=== PATIENT | female | born 1975 | race African-American/Black ===

== ENCOUNTER 2016-06-14 23:31 | Emergency (ER) | payer OTHER ==
[2016-06-14 23:47] VITALS: BP 159/87; PULSE 105; TEMP 98.4; BMI 32.3
--- NOTE | 2016-06-14 23:54 | PDOC ---
History of Present Illness - General Chief Complaint: Tachycardia Stated Complaint: LT HAND NUMBNESS Time Seen by Provider: 06/14/16 23:35 History Source: Patient Exam Limitations: No Limitations - History of Present Illness Initial Comments: 06/14/16 23:46 40 Y F HTN, DM, PAROXYSMAL A-FIB. PTE C/O PALPITATIONS,ON AND OFF SINCE THIS EVENING. HR HAS GONE UP TO HIGH 180. NO CHEST PAIN BUT C/O TINGLING ON HER FINGERTIPS BOTH HANDS. STS HAS THIS ON AND OFF. SUPOSED TO BE ON ELIQUIST BUT CAN'T AFFORD IT. WHEN ASKED ABOUT POSSIBLE TRIGGERS, PT BROKE UP IN TEARS ABD STATED SHE HAS A LOT5 OF STRESS TAKING CARE OF BOTH HER PARENTS AND HER KIDS. STS HAS EPISODES OF ANXIETY WHICH TRIGGER HER HEART RATE. IN ED, IN NAD REG RATE AT 98 W/ GOOD O2 SATS. WHEN CRYING, HR WENT UP TO 140 ON MONITOR BUT REGULAR. AFTER REASSURANCE AND SOME LISTENING PT'S HR WENT DOWN TO LOW 90'S. FEELS BETTER. Past History - Past Medical History Allergies/Adverse Reactions: Allergies Allergy/AdvReac Type Severity Reaction Status Date / Time No Known Allergies Allergy Verified 01/21/16 02:42 Home Medications: Ambulatory Orders Acetaminophen [Tylenol .Regular Strength -] 650 mg PO Q6H PRN #0 tablet Alcohol Antiseptic Pads [Easy Touch Alcohol Prep Pads] 1 each ACHS #120 med..pad 01/26/16 Lactobacillus Acidophilus [Bacid -] 1 tab PO DAILY tab 01/26/16 Lancing Device [Lancet Device] 1 each ACHS #120 each 01/26/16 Miscellaneous Medical Supply [Glucometer Device] 1 each .ROUTE ASDIR #1 kit Miscellaneous Medical Supply [Glucometer Test Strips #100] 1 each .ROUTE ASDIR # 1 box 01/26/16 Apixaban [Eliquis -] 5 mg PO BID tablet 02/09/16 Lisinopril 5 mg PO DAILY tablet 02/20/16 HTN: Yes - Surgical History Cholecystectomy: Yes - Psycho/Social/Smoking Cessation Hx Anxiety: No Suicidal Ideation: No Smoking History: Never smoked Have you smoked in the past 12 months: No Hx Alcohol Use: No Drug/Substance Use Hx: No Substance Use Type: None Hx Substance Use Treatment: No Review of Systems - Review of Systems Able to Perform ROS?: Yes Is the patient limited Singaporean proficient: No Constitutional: No: Symptoms Reported HEENTM: No: Symptoms Reported Respiratory: Yes: See HPI. No: Symptoms reported Cardiac (ROS): Yes: Symptoms Reported, See HPI, Palpitations. No: Chest Pain, Irregular Heart Rate Musculoskeletal: No: Symptoms Reported Neurological: Yes: See HPI. No: Symptoms reported All Other Systems: Reviewed and Negative *Physical Exam - Physical Exam General Appearance: Yes: Nourished, Appropriately Dressed, Obese. No: Apparent Distress HEENT: positive: Normal ENT Inspection Neck: positive: Supple. negative: Tender Respiratory/Chest: positive: Lungs Clear, Normal Breath Sounds. negative: Chest Tender, Respiratory Distress Cardiovascular: positive: Regular Rhythm, Regular Rate. negative: Murmur Gastrointestinal/Abdominal: positive: Soft. negative: Tender Musculoskeletal: positive: Normal Inspection Extremity: positive: Normal Capillary Refill. negative: Pedal Edema Integumentary: positive: Normal Color Neurologic: positive: Fully Oriented, Alert, Normal Mood/Affect, Normal Response , Motor Strength 5/5 Progress Note - Progress Note Progress Note: I BELIEVE THIS EPISODES ARE MORE LIKELY ANXIETY. COULD TRIGGER HER A-FIB BUT ONLY SINUS TACH IN ER ON DILT FOR RATE CONTROL. WILL SEND HOME (WE SPENT A LONG TIME CHATING ABOUT HER ISSUES AND HOW TO COPE W / STRESS) ADMISSION IS NOT WARRANTED AND LIKELY TO WORSEN HER STRESS WILL CALL DR. BONE ON FRIDAY *DC/Admit/Observation/Transfer Diagnosis at time of Disposition: Anxiety - Discharge Dispostion Disposition: HOME Condition at time of disposition: Stable - Referrals Referrals: Aj Bone MD [Primary Care Provider] - 2 Days - Patient Instructions Additional Instructions: CONTINUE MEDICATIONS PRESCRIBED IF NOT TAKING ELOQUIS, TAKE ASPIRIN ONCE A DAY CHECK OTHER SOURCES LIKE [employer] RETURN TO ER IF RECURRENCE OR NEW SYMPTOMS
--- NOTE | 2016-06-17 20:37 | EKG ---
Test Reason : Blood Pressure : / mmHG Vent. Rate : 093 BPM Atrial Rate : 093 BPM P-R Int : 142 ms QRS Dur : 082 ms QT Int : 382 ms P-R-T Axes : 044 039 040 degrees QTc Int : 474 ms POOR DATA QUALITY, INTERPRETATION MAY BE ADVERSELY AFFECTED NORMAL SINUS RHYTHM NO PREVIOUS ECGS AVAILABLE Confirmed by MD DALE MARJORY ([id number]) on 06/17/2016 8:37:15 PM Referred By: MD LOCO Confirmed By:MESFIN DALE MD
== END 2016-06-15 00:16 | disposition home or self-care (01) ==
LOC: FER 23:31
DX: F41.9 Anxiety disorder, unspecified (principal); I48.91 Unspecified atrial fibrillation; I10 Essential (primary) hypertension
CPT/HCPCS: 93005; 99281-25

== ENCOUNTER → 2016-08-27 | Emergency (ER) | payer OTHER ==
[~2016-08-27] MED LIST: ALPRAZolam 0.25 MG TABLET ONE; ALPRAZolam 0.25 MG TABLET PO ONE; ALPRAZolam 0.25 MG TABLET PO SCH; ENOXAPARIN NA (PORCINE) 100 MG/1 ML DISP.SYRIN SQ ONE; ENOXAPARIN NA (PORCINE) 120 MG/0.8 ML DISP.SYRIN SQ SCH; ENOXAPARIN NA (PORCINE) 30 MG/0.3 ML DISP.SYRIN SQ ONE; METOPROLOL TARTRATE 5 MG/5 ML VIAL IVPUSH ONE; METOPROLOL TARTRATE 5 MG/5 ML VIAL ONE; METOPROLOL TARTRATE 50 MG TABLET (FP) ONE; METOPROLOL TARTRATE 50 MG TABLET (FP) PO ONE; SODIUM CHLORIDE 500 ML IV STA; dilTIAZem HCL 50 MG/10 ML - 10 ML VIAL IVPUSH ONE; dilTIAZem HCL 50 MG/10 ML - 10 ML VIAL ONE
--- NOTE | 2016-08-27 06:09 | PDOC ---
History of Present Illness - General Chief Complaint: Palpitations Stated Complaint: PALPITATIONS Time Seen by Provider: 08/27/16 06:06 History Source: Patient Exam Limitations: No Limitations - History of Present Illness Initial Comments: 08/27/16 06:45 This is a 40-year-old female who comes in complaining of palpitations and chest pain. 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 fib in the past. Patient was recently admitted at [facility] for rapid A. fib and had multiple wide complexes as well so had an ablation. This was patient's first night back to work. Patient is otherwise obese, has history of hypertension and [id number] diabetes. Patient came down to the ER and was put on the monitor and noted to be in a rapid heart rate approximately 160. Patient put on oxygen and symptoms rapidly resolved at the time I saw her she was not complaining of any chest pain or palpitations. PAST MEDICAL HISTORY: no significant history PAST SURGICAL HISTORY: no significant history FAMILY HISTORY: no pertinant history SOCIAL HISTORY: Pt lives with family and is employed. MEDICATIONS: reviewed ALLERGIES: As per nursing notes Review of Systems General: No fevers or chills, no weakness, no weight loss HEENT: No change in vision. No sore throat,. No ear pain CardioVascular: As per history of present illness palpitations, diaphoresis and chest pain Respiratory:No cough, or wheezing. Gastrointestinal: no nausea, vomitting, diarrhea or constipation, No rectal bleeding Genitourinary: No dysuria, hematuria, or frequency Musculoskeletal: No joint or muscle pain or swelling Neurologic: No headache, vertigo, dizziness or loss of consciousness Psychiatric: nor depression Skin: No rashes or easy bruising Endocrine: no increased thirst or abnormal weight change Allergic: no skin or latex allergy All other systems reviewed and normal Exam: General: Well-nourished well-developed individual, mild distress with some diaphoresis HEENT: Throat: Normal, tonsils normal, no erythema or exudate Neck: Supple, no meningeal signs, no lymphadenopathy Eyes::Pupils equal reactive and round, extraocular motion intact Chest: Nontender to palpation Cardiac: S1-S2 normal, irregularly irregular Respiratory: Lungs clear to auscultation bilateral Abdomen: Soft, nondistended, normal bowel sounds, nontender to palpation diffusely Extremities: Warm, dry, no cyanosis, clubbing, or edema Skin: No rashes Neuro: Alert and oriented x3, nonfocal exam, grossly intact, normal gait Psych: Normal mood and affect EKG shows a combination of wide complex tachycardia and an underlying rhythm of a rapid atrial fibrillion Care of this patient was transferred to Dr. ibarra at 7 AM. Patient's labs are still pending. Discussed case with Dr. Canseco from [facility] who said that the ablation that patient had tach in June failed and that they wanted to repeat it under general anesthesia but patient refused. Dr. Cadet is going to come talk to the patient here in the emergency room and the assess to hold her here in tell he is able to discuss with her her options and come up with a plan for her treatment of this recurrent tachycardia Case discussed in detail with oncoming Emergency Physician including history, physical exam and ancillary studies. Oncoming Emergency Physician has assumed care for the patient and will complete the evaluation and treatment. Patient is aware of the plan. Pt is clinically unchanged and stable. 08/27/16 06:52 He he he I and learning to walk out and get year-round wear your out abdomen this morning lasted in a car where was(or Past History - Past Medical History Allergies/Adverse Reactions: Allergies Allergy/AdvReac Type Severity Reaction Status Date / Time No Known Allergies Allergy Verified 08/27/16 06:07 Home Medications: Ambulatory Orders Metoprolol Tartrate [Lopressor] 100 mg PO BID tablet 07/30/16 Mexiletine HCl 150 mg PO BID capsule 07/30/16 Warfarin Sodium 5 mg PO BID tablet 07/30/16 Lisinopril 5 mg PO DAILY 08/27/16 Sertraline HCl 25 mg PO DAILY 08/27/16 Cardiac Disorders: Yes (AFIB) Diabetes: Yes HTN: Yes - Surgical History Cholecystectomy: Yes - Psycho/Social/Smoking Cessation Hx Anxiety: No Suicidal Ideation: No Smoking History: Never smoked Have you smoked in the past 12 months: No Hx Alcohol Use: No Drug/Substance Use Hx: No Substance Use Type: None Hx Substance Use Treatment: No *Physical Exam - Vital Signs Last Vital Signs Temp Pulse Resp BP Pulse Ox 97.9 F 135 H 18 112/76 100 08/27/16 06:40 08/27/16 06:38 08/27/16 06:35 08/27/16 06:35 08/27/16 06:38 ED Treatment Course - RADIOLOGY Radiology Studies Ordered: Category Date Time Status CHEST X-RAY PORTABLE* [RAD] Stat Radiology 08/27/16 06:25 Ordered *DC/Admit/Observation/Transfer Diagnosis at time of Disposition: Palpitations - Discharge Dispostion Condition at time of disposition: Stable
[2016-08-27 06:36] VITALS: BMI 46.4
[2016-08-27 06:40] VITALS: TEMP 97.9
--- NOTE | 2016-08-27 07:10 | PDOC ---
*Physical Exam - Vital Signs Last Vital Signs Temp Pulse Resp BP Pulse Ox 97.9 F 135 H 18 112/76 100 08/27/16 06:40 08/27/16 06:38 08/27/16 06:35 08/27/16 06:35 08/27/16 06:38 ED Treatment Course - LABORATORY CBC & Chemistry Diagram: 08/27/16 06:34 08/27/16 08:08 Medical Decision Making - Medical Decision Making 08/27/16 07:10 Pt signed out to me from Dr. Oakley. The patient is a 41y F hx of htn, afib w/ multiple wide complexes s/p failed ablation presents today with palpitations and chest pain, pt noted to be afib with intermittent runs of 3-4 beats of wide complex tachycardia on ekg. Case was discussed with Dr. Canseco, who states pt will need another ablation (pt had declined undergoing general anesthesia last time) and would hold medical management. Pts BP normal here at 112/76. awaiting lab work and evaluation by Dr. Canseco regarding possible ablation. 08/27/16 09:[address] Canseco who is bedside evaluation the patient will transfer the pt [place] [facility] [place] [place] care of dr Audelia Nick (EP) would recommend metoprolol PRN for rate control BP stable The patient was seen and examined to determine medical stability. The patient is MEDICALLY STABLE at this time. Labs, EKG, radiological studies were ordered to expedite the patient's care. I certify that I have discussed with the patient and/or his maintenance representative the following risks and benefits of the proposed transfer. Risks include worsening of patients condition during transport,auto accident, or permanent disability. Benefits include receiving specialized care not available at this facility. I certify that, based on the information available at this time, the medical benefits reasonably expected from the provision of appropriate medical treatment at the receiving facility outweigh the increased risk to the patient. I believe the patient/relative/guardian understands what I have explained and answered. The patient will be transferred to the service of Dr. Audelia Nick at [facility] 08/27/16 10:17 The pt s/p 20mg of diltiazem with improvement of her HR to afib in the 70s 08/27/16 10:49 INR subtherapeutic will give her lovenox 100mg BID while awaiting transfer to [facility] d/w dr. Canseco, agree w/ lovenox and will give her metoprolol 100mg PO chaser CRITICAL CARE DOCUMENTATION: I spent ~35 minutes of Critical Care time, excluding separately billable procedures, involving high complexity decision making to assess, manipulate and support vital system function(s) to treat single or multiple vital organ system failure and/or to prevent further life threatening deterioration of the patient' s condition. *DC/Admit/Observation/Transfer Diagnosis at time of Disposition: Palpitations, Rapid atrial fibrillation, Nonsustained ventricular tachycardia - Discharge Dispostion Disposition: TRANSFER ACUTE CARE/OTHER HOSP Condition at time of disposition: Guarded Admit: No - Referrals Referrals: Aj Hagen MD [Primary Care Provider] - - Patient Instructions - Post Discharge Activity - Transfer to Acute Care Facility Receiving Facility: [facility] Accepting Physician:: Dr. Audelia Nick
[2016-08-27 07:35] LABS: BASOPHIL 1.5 % (0-2.0); EOSINOPHIL 1.1 % (0-4.5)
[2016-08-27 07:41] LABS: MCHC 32.8 g/dl (32.0-36.0); MEAN CELL VOLUME 82.2 fl (80-96); NEUTROPHILS 45.6 % (42.8-82.8); WHITE BLOOD COUNT 8.6 K/mm3 (4.0-10.8)
--- NOTE | 2016-08-27 08:26 | CON.CARD ---
Consult Consult Specialty:: Cardiology Referred by:: Dr. Patiño Reason for Consultation:: Wide complex tachycardia - History of Present Illness Chief Complaint: Palpitations History of Present Illness: 41 yo obese female with HTN, DM type 2, paroxysmal atrial fibrillation/non- sustained ventricular tachycardia, who recently underwent VT ablation on at [facility] but subsequently demonstrated VT post-procedure. Patient was to undergo repeat attempt at VT ablation under general anesthesia, but could not be performed due to scheduling issues and patient was discharged with outpatient follow-up. Patient's medical regimen was changed to metoprolol 100 mg po bid and Mexiletine 150 mg po bid, and started on coumadin for anticoagulation during that hospitalization. Patient was last seen in our office on 08/09/16 and was in sinus rhythm at that time. Patient was scheduled to see Dr. Audelia Nick (EP) on 08/30/16 at [facility]. However, last evening ~ 7 PM she developed palpitations and dyspnea and at work today (at [employer]) she found to be in rapid afib with runs of non-sustained VT. Currently without significant complaints but HR 130-150s. Patient reports compliance with her cardiac meds. Patient was given metoprolol 5 mg IVP in ED for rate control. - History Source History Provided By: Patient Limitations to Obtaining History: No Limitations - Past Medical History Cardio/Vascular: Yes: AFIB (paroxsymal), HTN (treated for about 1 ya, up to 1 ya -. self d/ariane (PMD left)), Other (Non-sustained ventricular s/p unsuccessful VT ablation on 07/24/16) ...LMP: 12/30/15 Endocrine: Yes: Diabetes Mellitus Additional Medical History: Obesity - Past Surgical History Past Surgical History: Yes: Cholecystectomy Additional Surgical History: VT ablation 07/24/16 at [facility] -> developed recurrent non-sustained VT post-procedure - Alcohol/Substance Use Hx Alcohol Use: No History of Substance Use: reports: None - Smoking History Smoking history: Never smoked Have you smoked in the past 12 months: No - Social History Usual Living Arrangement: With Child (3 daughters) Occupation: [employer] Home Medications - Allergies Allergies/Adverse Reactions: Allergies Allergy/AdvReac Type Severity Reaction Status Date / Time No Known Allergies Allergy Verified 08/27/16 06:07 - Home Medications Home Medications: Ambulatory Orders Metoprolol Tartrate [Lopressor] 100 mg PO BID tablet 07/30/16 Mexiletine HCl 150 mg PO BID capsule 07/30/16 Warfarin Sodium 5 mg PO BID tablet 07/30/16 Lisinopril 5 mg PO DAILY 08/27/16 Sertraline HCl 25 mg PO DAILY 08/27/16 Family Disease History - Family Disease History Family Disease History: Heart Disease: Father (2 CBG, first one in his 50s, also PCI) Review of Systems - Review of Systems Constitutional: reports: No Symptoms Eyes: reports: No Symptoms HENT: reports: No Symptoms Cardiovascular: reports: Palpitations, Shortness of Breath (with exertion). denies: Chest Pain Respiratory: reports: SOB on Exertion Gastrointestinal: reports: No Symptoms Genitourinary: reports: No Symptoms Musculoskeletal: reports: No Symptoms Neurological: reports: No Symptoms Endocrine: reports: No Symptoms Hematology/Lymphatic: reports: No Symptoms Psychiatric: reports: No Symptoms Vital Signs: Vital Signs Temperature 97.9 F 08/27/16 08:17 Pulse Rate 141 H 08/27/16 08:17 Respiratory Rate 19 08/27/16 08:17 Blood Pressure 120/100 08/27/16 08:17 O2 Sat by Pulse Oximetry (%) 100 08/27/16 08:17 Constitutional: Yes: No Distress, Obese Eyes: Yes: Conjunctiva Clear, EOM Intact HENT: Yes: Atraumatic, Normocephalic Respiratory: Yes: CTA Bilaterally Gastrointestinal: Yes: Normal Bowel Sounds, Soft. No: Tenderness JVD: No Carotid Bruit: No Murmur: No: Systolic Murmur Extremities: Yes: WNL Edema: No Neurological: Yes: Alert, Oriented, Cran Nerves II-XII Intact Psychiatric: Yes: Alert, Oriented - Other Data Labs, Other Data: CBC, BMP 08/27/16 06:34 08/27/16 06:34 INR, PTT INR Cancelled 08/27/16 06:34 Troponin, BNP 08/27/16 08/27/16 06:34 06:34 Troponin I Cancelled B-Natriuretic Peptide Cancelled Troponin, BNP 08/27/16 08/27/16 06:34 06:34 Troponin I Cancelled B-Natriuretic Peptide Cancelled 08/27/16 ECG: Rapid atrial fibrillation with non-sustained ventricular tachycardia Echo: Report Reviewed (07/17/16 Echo (at [facility]): Normal LV size and wall motion. LVEF 60%. Min MR. Mild TR.) Imaging - Results Cat Scan: Report Reviewed (07/18/16 Cardiac CTA: Calcium score = 0, normal coronaries) Other: Report Reviewed (07/18/16 Cardiac MRI: Mild hypokinesis of basal segments , LVEF 49%.) Assessment/Plan 41 yo obese female with HTN, DM type 2, paroxysmal atrial fibrillation/non- sustained ventricular tachycardia, who recently underwent VT ablation on at [facility] but subsequently demonstrated VT post-procedure. Patient was recently seen in our office several weeks ago and was in sinus rhythm at that time. Patient had pending appt with Dr. Audelia Nick on 08/30/16 at [facility]. Patient now presents to ED with recurrent rapid afib with non-sustained VT. Patient only complains of palpitations currently and is hemodynamically stable. Spoke with PA for Dr. Audelia Nick (EP at [facility]) regarding patient's current clinical status. Patient has agreed to undergo repeat attempt at VT ablation under general anesthesia as previously planned during her last recent hospitalization. RECS: Patient to be transferred to [facility] from [place] for repeat VT ablation under general anesthesia. Continue metoprolol tartrate 100 mg po bid and uptitrate as needed. May give metoprolol 5 mg IVP as needed for acute rate control. Continue her Mexiletine 150 mg po bid for now pending evaluation by EP service at [facility]. Hold coumadin for pending procedure. Keep patient NPO for now. Will add magnesium level to previously drawn labs.
[2016-08-27 08:42] LABS: MEAN PLT VOLUME 12.1 fl (7.5-11.1); PLATELET COUNT 358 K/MM3 (134-434)
[2016-08-27 08:59] LABS: ALBUMIN 3.4 g/dl (3.5-5.0); ALK PHOS 66 U/L (32-92); ANION GAP 10 (8-16); BILIRUBIN,TOTAL 0.7 mg/dl (0.2-1.0); CO2 22 mmol/L (22-28); CREATININE 0.8 mg/dl (0.6-1.3); GLUCOSE,RANDOM 296 mg/dl (74-106); SGOT/AST 14 U/L (10-42); SGPT/ALT 14 U/L (10-40); TOT PROT 7.5 g/dl (6.4-8.3)
[2016-08-27 09:31] LABS: TROPONIN I (DFP) 0.03 ng/ml (0.03-0.50)
[2016-08-27 10:16] LABS: INR 1.24 (0.82-1.09); PROTHROMBIN TIME (PATIENT) 13.8 SEC (10.2-13.0)
[2016-08-27 12:04] LABS: PH,URINE 5.5 (4.5-8); URINE APPEARANCE Cloudy; URINE BILIRUBIN 1+ (NEGATIVE); URINE BLOOD Trace-lysed (NEGATIVE); URINE GLUCOSE (UA) Trace (NEGATIVE); URINE KETONE 1+ (NEGATIVE); URINE NITRITE Negative (NEGATIVE); URINE UROBILINOGEN 0.2 E.U/dl (0.2-1.0)
[2016-08-27 12:20] LABS: URINE COLOR YELLOW; URINE LEUK ESTERASE TRACE (NEGATIVE); URINE PROTEIN 2+ (NEGATIVE)
[2016-08-27 13:06] LABS: URINE RBC 0-3 /hpf (0-3)
[2016-08-27 13:08] LABS: URINE BACTERIA MODERATE /hpf (NEGATIVE)
[2016-08-27 14:41] VITALS: BP 128/78; PULSE 83
--- NOTE | 2016-08-28 10:31 | EKG ---
Test Reason : Blood Pressure : / mmHG Vent. Rate : 080 BPM Atrial Rate : 258 BPM P-R Int : 000 ms QRS Dur : 082 ms QT Int : 380 ms P-R-T Axes : 000 056 054 degrees QTc Int : 438 ms ATRIAL FIBRILLATION ABNORMAL ECG WHEN COMPARED WITH ECG OF 27-AUG-2016 06:09, VENT. RATE HAS DECREASED BY 73 BPM Non-sustained ventricular tachycardia is no longer present Confirmed by STEVE VERDUZCO, KIMBERLY ([id number]) on 08/28/2016 10:31:35 AM Referred By: MD JOLLY Confirmed By:KIMBERLY WILSON MD
--- NOTE | 2016-08-28 11:53 | EKG ---
Test Reason : Blood Pressure : / mmHG Vent. Rate : 153 BPM Atrial Rate : 174 BPM P-R Int : 000 ms QRS Dur : 144 ms QT Int : 270 ms P-R-T Axes : 000 064 244 degrees QTc Int : 431 ms POOR DATA QUALITY, INTERPRETATION MAY BE ADVERSELY AFFECTED ATRIAL FIBRILLATION WITH RAPID VENTRICULAR RESPONSE Intermittent non-sustained ventricular tachycardia ABNORMAL ECG WHEN COMPARED WITH ECG OF 15-JUN-2016 00:03, ATRIAL FIBRILLATION HAS REPLACED SINUS RHYTHM VENT. RATE HAS INCREASED BY 60 BPM Confirmed by KIMBERLY WILSON MD ([id number]) on 08/28/2016 11:53:34 AM Referred By: MD JOSEPH Confirmed By:KIMBERLY WILSON MD
== END | disposition short-term general hospital (02) ==
LOC: FER 05:50
PROC: 3E023GC Introduction of Other Therapeutic Substance into Muscle, Percutaneous Approach (ICD-10-PCS; principal; 2016-08-27)
PROC: 3E033GC Introduction of Other Therapeutic Substance into Peripheral Vein, Percutaneous Approach (ICD-10-PCS; 2016-08-27)
PROC: 3E0337Z Introduction of Electrolytic and Water Balance Substance into Peripheral Vein, Percutaneous Approach (ICD-10-PCS; 2016-08-27)
DX: R00.2 Palpitations (principal); I48.91 Unspecified atrial fibrillation; I10 Essential (primary) hypertension
CPT/HCPCS: 36415; 71010-TC; 80053; 81003; 81015; 82550; 83735; 83880; 84443; 84484; 85025; 85610; 93005; 93010; 99285-25

== ENCOUNTER 2016-09-25 05:46 | Emergency (ER) | payer OTHER ==
[2016-09-25 05:55] VITALS: BP 160/109; PULSE 102; TEMP 98; BMI 45.1
[2016-09-25] MEDS ORDERED: KETOROLAC TROMETHAMINE 60 MG/2 ML VIAL IM ONE (06:01)
--- NOTE | 2016-09-25 06:04 | PDOC ---
History of Present Illness - General Chief Complaint: Pain, Acute Stated Complaint: WORK INJURY TO LEFT WRIST Time Seen by Provider: 09/25/16 05:56 History Source: Patient Exam Limitations: No Limitations - History of Present Illness Initial Comments: 09/25/16 06:04 This is a 41-year-old female comes in complaining of left wrist and hand pain. 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 To prevent the patient from falling on the floor she said her wrist was twisted and now he is very painful. She denies any other injuries. PAST MEDICAL HISTORY: no significant history PAST SURGICAL HISTORY: no significant history FAMILY HISTORY: no pertinant history SOCIAL HISTORY: Pt lives with family and is employed. MEDICATIONS: reviewed ALLERGIES: As per nursing notes Review of Systems General: No fevers or chills, no weakness, no weight loss HEENT: No change in vision. No sore throat,. No ear pain CardioVascular: No chest pain or shortness of breath Respiratory:No cough, or wheezing. Gastrointestinal: no nausea, vomitting, diarrhea or constipation, No rectal bleeding Genitourinary: No dysuria, hematuria, or frequency Musculoskeletal: Left wrist pain Neurologic: No headache, vertigo, dizziness or loss of consciousness Psychiatric: nor depression Skin: No rashes or easy bruising Endocrine: no increased thirst or abnormal weight change Allergic: no skin or latex allergy All other systems reviewed and normal GENERAL: The patient is awake, alert, and fully oriented, in no acute distress. HEAD: Normal with no signs of trauma. EYES: Pupils equal, round and reactive to light, extraocular movements intact, sclera anicteric, conjunctiva clear. EXTREMITIES: left wrist: There is tenderness on palpation of the medial aspect of the wrist and the base of the thumb over the scaphoid neurovascular distal is intact. There is decreased range of motion secondary to discomfort. NEUROLOGICAL: Normal speech, normal gait. PSYCH: Normal mood, normal affect. SKIN: Warm, Dry, normal turgor, no rashes or lesions noted. X-ray: Scaphoid fracture Procedure note OCL splint Thumb spica OCL splint applied to patient's left wrist and hand Neurovascular post splint application intact Assessment and plan: This is a 41-year-old female who was injured on-the-job well attempting to assist a patient in getting out of bed. Patient's x-ray shows a probable scaphoid fracture. Patient put in a thumb spica splint and will follow-up with orthopedist 09/25/16 06:33 Past History - Past Medical History Allergies/Adverse Reactions: Allergies Allergy/AdvReac Type Severity Reaction Status Date / Time No Known Allergies Allergy Verified 09/25/16 05:47 Home Medications: Ambulatory Orders Warfarin Sodium 5 mg PO HS tablet 07/30/16 Lisinopril 5 mg PO DAILY 08/27/16 Sertraline HCl 25 mg PO DAILY 08/27/16 Dofetilide [Tikosyn] 125 mcg PO 2 CAPS BID capsule 09/04/16 Metoprolol Tartrate 25 mg PO BID tablet 09/04/16 Cardiac Disorders: Yes (AFIB) Diabetes: Yes HTN: Yes - Surgical History Cholecystectomy: Yes - Psycho/Social/Smoking Cessation Hx Anxiety: No Suicidal Ideation: No Smoking History: Never smoked Have you smoked in the past 12 months: No Information on smoking cessation initiated: No Hx Alcohol Use: No Drug/Substance Use Hx: No Substance Use Type: None Hx Substance Use Treatment: No *Physical Exam - Vital Signs Last Vital Signs Temp Pulse Resp BP Pulse Ox 98 F 102 H 16 160/109 96 09/25/16 05:50 09/25/16 05:50 09/25/16 05:50 09/25/16 05:50 09/25/16 05:50 *DC/Admit/Observation/Transfer Diagnosis at time of Disposition: Fracture of scaphoid of left wrist Qualifiers: Encounter type: initial encounter Scaphoid bone location: middle third Fracture type: closed Fracture alignment: nondisplaced Qualified Code(s): S62.025A - Nondisplaced fracture of middle third of navicular [scaphoid] bone of left wrist, initial encounter for closed fracture - Discharge Dispostion Disposition: HOME Condition at time of disposition: Stable Admit: No - Referrals Referrals: Aj Hagen MD [Primary Care Provider] - - Patient Instructions Additional Instructions: Tylenol or Motrin as needed for the pain. Wear the splint until you see the orthopedist. Call Dr. Kay at [phone] this morning for an appointment. Return to the emergency department immediately with ANY new, persistent or worsening symptoms. Continue any medications as previously prescribed by your physician. Thank you for coming to the Emergency Department today for your care. It was a pleasure to see you today. Please note that your evaluation is INCOMPLETE until you follow-up with your doctor.
== END 2016-09-25 06:48 | disposition home or self-care (01) ==
LOC: FER 05:46
PROC: 2W3KX1Z Immobilization of Left Finger using Splint (ICD-10-PCS; principal; 2016-09-25)
PROC: 3E0233Z Introduction of Anti-inflammatory into Muscle, Percutaneous Approach (ICD-10-PCS; 2016-09-25)
DX: S62.025A Nondisplaced fracture of middle third of navicular [scaphoid] bone of left wrist, initial encounter for closed fracture (principal); X58.XXXA Exposure to other specified factors, initial encounter; Y93.89 Activity, other specified; Y92.239 Unspecified place in hospital as the place of occurrence of the external cause; Y99.0 Civilian activity done for income or pay; E11.9 Type 2 diabetes mellitus without complications; I10 Essential (primary) hypertension; I48.91 Unspecified atrial fibrillation; Z79.01 Long term (current) use of anticoagulants
CPT/HCPCS: 73110-TC-LT; 73130-TC-LT; 99281-25

== ENCOUNTER 2017-04-30 04:33 | Emergency (ER) | payer OTHER ==
[2017-04-30 04:55] VITALS: TEMP 98.2; BMI 40.3
[2017-04-30] MEDS ORDERED: SIMETHICONE 80 MG TAB.CHEW (FP) ONE (05:10)
[2017-04-30] MEDS ORDERED: SIMETHICONE 80 MG TAB.CHEW (FP) PO ONE (05:19)
[2017-04-30 05:21] LABS: EOS % 0.5 % (0-4.5); HEMATOCRIT 39.5 % (32.4-45.2); HEMOGLOBIN 12.7 GM/dL (10.7-15.3); LYMPH % 41.1 % (8-40); MCH 25.9 pg (25.7-33.7); MEAN CELL VOLUME 80.8 fl (80-96); MEAN PLT VOLUME 11.3 fl (7.5-11.1); MONO % 6.3 % (3.8-10.2); NEUT % 51.1 % (42.8-82.8); PLATELET COUNT 231 K/MM3 (134-434); RBC 4.88 M/mm3 (3.60-5.2); RDW 14.5 % (11.6-15.6); WHITE BLOOD COUNT 7.1 K/mm3 (4.0-10.0)
[2017-04-30 05:44] LABS: ALBUMIN 3.3 g/dl (3.4-5.0); ALK PHOS 79 U/L (45-117); ANION GAP 8 (8-16); BILIRUBIN,TOTAL 0.2 mg/dL (0.2-1.0); BLOOD UREA NITROGEN 16 mg/dL (7-18); CALCIUM 8.8 mg/dL (8.5-10.1); CHLORIDE 100 mmol/L (98-107); CO2 26 mmol/L (21-32); CREATININE 0.8 mg/dL (0.55-1.02); PHOSPHOROUS 3.8 mg/dL (2.5-4.9); SGPT/ALT 16 U/L (12-78); SODIUM 134 mmol/L (136-145); TOT PROT 7.7 g/dl (6.4-8.2)
[2017-04-30 05:47] LABS: MAGNESIUM 1.7 mg/dL (1.8-2.4); POTASSIUM 4.2 mmol/L (3.5-5.1); SGOT/AST 10 U/L (15-37)
[2017-04-30 05:48] LABS: GLUCOSE,RANDOM 319 mg/dL (74-106)
--- NOTE | 2017-04-30 06:11 | PDOC ---
History of Present Illness - General Chief Complaint: Pain, Acute Stated Complaint: CHEST PAIN,IRREGULAR HEART BEAT Time Seen by Provider: 04/30/17 04:37 Exam Limitations: No Limitations - History of Present Illness Initial Comments: 04/30/17 06:16 DM, pafib, hx of nsvt, s/p ablation on ac presents with intermittent palpitations x 5 days HR as fast as 170 Had recent uri + life stressors Timing/Duration: 1 week Severity: moderate Modifying Factors: worse with: medication Associated Symptoms: denies: cough, fever/chills, nausea/vomiting Past History - Past Medical History Allergies/Adverse Reactions: Allergies Allergy/AdvReac Type Severity Reaction Status Date / Time No Known Allergies Allergy Verified 09/25/16 05:47 Home Medications: Ambulatory Orders Warfarin Sodium 5 mg PO HS tablet 07/30/16 Sertraline HCl 25 mg PO DAILY 08/27/16 Lisinopril 10 mg PO DAILY tablet 12/06/16 Metoprolol Tartrate 50 mg PO BID tablet 12/06/16 Sotalol HCl [Sotalol] 80 mg PO BID tablet 12/06/16 Alprazolam [Xanax] 1 mg PO BID 04/30/17 Cardiac Disorders: Yes (AFIB) COPD: No Diabetes: Yes HTN: Yes - Surgical History Cholecystectomy: Yes - Suicide/Smoking/Psychosocial Hx Smoking History: Never smoked Have you smoked in the past 12 months: No Information on smoking cessation initiated: No Hx Alcohol Use: No Drug/Substance Use Hx: No Substance Use Type: None Hx Substance Use Treatment: No Review of Systems - Review of Systems Able to Perform ROS?: Yes All Other Systems: Reviewed and Negative *Physical Exam - Vital Signs Last Vital Signs Temp Pulse Resp BP Pulse Ox 98.2 F 88 14 163/98 100 04/30/17 04:49 04/30/17 05:58 04/30/17 05:57 04/30/17 05:57 04/30/17 05:58 - Physical Exam General Appearance: Yes: Nourished HEENT: positive: Normal Voice Neck: positive: Supple Respiratory/Chest: positive: Lungs Clear. negative: Chest Tender Cardiovascular: positive: Regular Rhythm Gastrointestinal/Abdominal: negative: Tender, Distended Lymphatic: negative: Adenopathy Musculoskeletal: positive: Normal Inspection Extremity: positive: Normal Capillary Refill Integumentary: positive: Normal Color Neurologic: positive: Fully Oriented ED Treatment Course - LABORATORY CBC & Chemistry Diagram: 04/30/17 04:40 04/30/17 04:40 - ADDITIONAL ORDERS Additional order review: Laboratory Results 04/30/17 04/30/17 04:40 04:40 Sodium 134 L Potassium 4.2 Chloride 100 Carbon Dioxide 26 Anion Gap 8 BUN 16 Creatinine 0.8 Creat Clearance w eGFR > 60 Random Glucose 319 H* Calcium 8.8 Phosphorus 3.8 Magnesium 1.7 L Total Bilirubin 0.2 AST 10 L ALT 16 Alkaline Phosphatase 79 Troponin I < 0.02 Total Protein 7.7 Albumin 3.3 L 04/30/17 04:40 RBC 4.88 D MCV 80.8 MCHC 32.0 RDW 14.5 MPV 11.3 H Neutrophils % 51.1 Lymphocytes % 41.1 H Monocytes % 6.3 Eosinophils % 0.5 Basophils % 1.0 - Medications Given in the ED: ED Medications Discontinued Medications Generic Name Dose Route Start Last Admin Trade Name Freq PRN Reason Stop Dose Admin Simethicone 80 mg 04/30/17 05:19 04/30/17 05:21 Mylicon - PO 04/30/17 05:20 80 mg NOW ONE Administration Medical Decision Making - Medical Decision Making 04/30/17 06:20 EKG: sinus at 89, nl acis, nl intervals, no ischemic findings a/p: PAF with RVR versus NSVT observe on monitor labs will coordinate care with cardiology *DC/Admit/Observation/Transfer Diagnosis at time of Disposition: Palpitations - Discharge Dispostion Condition at time of disposition: Stable - Referrals Referrals: Aj Hagen MD [Primary Care Provider] - - Patient Instructions - Post Discharge Activity
[2017-04-30] MEDS ORDERED: MAGNESIUM SULF 50% (8.12 MEQ/2 ML-1 GM VIAL) ONE (06:17)
--- NOTE | 2017-04-30 06:35 | PDOC ---
History of Present Illness - General Chief Complaint: Pain, Acute Stated Complaint: CHEST PAIN,IRREGULAR HEART BEAT Time Seen by Provider: 04/30/17 04:37 Past History - Past Medical History Allergies/Adverse Reactions: Allergies Allergy/AdvReac Type Severity Reaction Status Date / Time No Known Allergies Allergy Verified 09/25/16 05:47 Home Medications: Ambulatory Orders Warfarin Sodium 5 mg PO HS tablet 07/30/16 Sertraline HCl 25 mg PO DAILY 08/27/16 Lisinopril 10 mg PO DAILY tablet 12/06/16 Metoprolol Tartrate 50 mg PO BID tablet 12/06/16 Sotalol HCl [Sotalol] 80 mg PO BID tablet 12/06/16 Alprazolam [Xanax] 1 mg PO BID 04/30/17 Cardiac Disorders: Yes (AFIB) COPD: No Diabetes: Yes HTN: Yes - Surgical History Cholecystectomy: Yes - Suicide/Smoking/Psychosocial Hx Smoking History: Never smoked Have you smoked in the past 12 months: No Information on smoking cessation initiated: No Hx Alcohol Use: No Drug/Substance Use Hx: No Substance Use Type: None Hx Substance Use Treatment: No *Physical Exam - Vital Signs Last Vital Signs Temp Pulse Resp BP Pulse Ox 98.2 F 85 18 178/97 100 04/30/17 04:49 04/30/17 06:24 04/30/17 06:24 04/30/17 06:24 04/30/17 06:24 ED Treatment Course - LABORATORY CBC & Chemistry Diagram: 04/30/17 04:40 04/30/17 04:40 - ADDITIONAL ORDERS Additional order review: Laboratory Results 04/30/17 04/30/17 04:40 04:40 Sodium 134 L Potassium 4.2 Chloride 100 Carbon Dioxide 26 Anion Gap 8 BUN 16 Creatinine 0.8 Creat Clearance w eGFR > 60 Random Glucose 319 H* Calcium 8.8 Phosphorus 3.8 Magnesium 1.7 L Total Bilirubin 0.2 AST 10 L ALT 16 Alkaline Phosphatase 79 Troponin I < 0.02 Total Protein 7.7 Albumin 3.3 L 04/30/17 04:40 RBC 4.88 D MCV 80.8 MCHC 32.0 RDW 14.5 MPV 11.3 H Neutrophils % 51.1 Lymphocytes % 41.1 H Monocytes % 6.3 Eosinophils % 0.5 Basophils % 1.0 - Medications Given in the ED: ED Medications Discontinued Medications Generic Name Dose Route Start Last Admin Trade Name Elle PRN Reason Stop Dose Admin Simethicone 80 mg 04/30/17 05:19 04/30/17 05:21 Mylicon - PO 04/30/17 05:20 80 mg NOW ONE Administration Medical Decision Making - Medical Decision Making 04/30/17 06:34 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 NSVT needs subspecialty care with Deisy SPARKS. Will observe on monitor to help determine whether this is VT or afib replete Mg *DC/Admit/Observation/Transfer Diagnosis at time of Disposition: Palpitations - Discharge Dispostion Condition at time of disposition: Stable - Referrals Referrals: Aj Hagen MD [Primary Care Provider] - - Patient Instructions - Post Discharge Activity
[2017-04-30] MEDS ORDERED: ALPRAZolam 1 MG TABLET PO ONE (07:24)
[2017-04-30] MEDS ORDERED: ALPRAZolam 0.25 MG TABLET ONE (07:24)
[2017-04-30 07:45] LABS: INR 0.97 (0.82-1.09); PROTHROMBIN TIME (PATIENT) 10.9 SEC (10.2-13.0)
--- NOTE | 2017-04-30 11:34 | PDOC ---
*Physical Exam - Vital Signs Last Vital Signs Temp Pulse Resp BP Pulse Ox 98.2 F 83 16 160/90 98 04/30/17 04:49 04/30/17 08:58 04/30/17 08:58 04/30/17 08:58 04/30/17 08:58 - Physical Exam Comments: 04/30/17 11:31 "GENERAL: Awake, alert, and fully oriented, in no acute distress HEAD: No signs of trauma EYES: PERRLA, EOMI, sclera anicteric, conjunctiva clear ENT: Auricles normal inspection, hearing grossly normal, nares patent, oropharynx clear without exudates. Moist mucosa NECK: Nontender, no stepoffs, Normal ROM, supple, no lymphadenopathy, JVD, or masses LUNGS: Breath sounds equal, clear to auscultation bilaterally. No wheezes, and no crackles HEART: Regular rate and rhythm, normal S1 and S2, no murmurs, rubs or gallops ABDOMEN: Soft, nontender, normoactive bowel sounds. No guarding, no rebound. No masses EXTREMITIES: Normal range of motion, no edema. No clubbing or cyanosis. No cords, erythema, or tenderness NEUROLOGICAL: Cranial nerves II through XII intact. 5/5 strength and sensation in all extremities, Normal speech, normal gait SKIN: Warm, Dry, normal turgor, no rashes or lesions noted. " ED Treatment Course - LABORATORY CBC & Chemistry Diagram: 04/30/17 04:40 04/30/17 04:40 - ADDITIONAL ORDERS Additional order review: Laboratory Results 04/30/17 04/30/17 04/30/17 10:35 10:10 06:45 PT with INR 10.9 INR 0.97 Sodium Potassium Chloride Carbon Dioxide Anion Gap BUN Creatinine Creat Clearance w eGFR Random Glucose Calcium Phosphorus Magnesium Total Bilirubin AST ALT Alkaline Phosphatase Creatine Kinase 88 Troponin I < 0.03 L Total Protein Albumin Beta HCG, Quant 04/30/17 04/30/17 04/30/17 04:40 04:40 04:40 PT with INR INR Sodium 134 L Potassium 4.2 Chloride 100 Carbon Dioxide 26 Anion Gap 8 BUN 16 Creatinine 0.8 Creat Clearance w eGFR > 60 Random Glucose 319 H* Calcium 8.8 Phosphorus 3.8 Magnesium 1.7 L Total Bilirubin 0.2 AST 10 L ALT 16 Alkaline Phosphatase 79 Creatine Kinase Troponin I < 0.02 Total Protein 7.7 Albumin 3.3 L Beta HCG, Quant < 1.0 04/30/17 04:40 RBC 4.88 D MCV 80.8 MCHC 32.0 RDW 14.5 MPV 11.3 H Neutrophils % 51.1 Lymphocytes % 41.1 H Monocytes % 6.3 Eosinophils % 0.5 Basophils % 1.0 - Medications Given in the ED: ED Medications Discontinued Medications Generic Name Dose Route Start Last Admin Trade Name Elle PRN Reason Stop Dose Admin Alprazolam 0.5 mg 04/30/17 07:24 04/30/17 07:27 Xanax PO 04/30/17 07:25 0.5 mg ONCE ONE Administration Magnesium Sulfate/Dextrose 1 100 mls @ 100 mls/hr 04/30/17 06:15 04/30/17 06: 21 gm/ Miscellaneous IVPB 04/30/17 07:14 100 mls/hr ONCE ONE Administration Simethicone 80 mg 04/30/17 05:19 04/30/17 05:21 Mylicon - PO 04/30/17 05:20 80 mg NOW ONE Administration Medical Decision Making - Medical Decision Making 04/30/17 11:32 41 F with h/o pafib, SVT, presenting with palpitations. - EKG unremarkable, NSR - Labs wnl - Pt monitored on tele for 6 hours with no event Pt reassessed - feels well with no complaints. vitals normal, clinically stable for DC. I discussed the physical exam findings, ancillary test results and final diagnoses with the patient. I answered all of the patient's questions. The patient was satisfied with the care received and felt comfortable with the discharge plan and treatment plan. The patient agrees to follow up with the primary care physician within 24-72 hours. *DC/Admit/Observation/Transfer Diagnosis at time of Disposition: Palpitations - Discharge Dispostion Disposition: HOME Condition at time of disposition: Stable - Referrals Referrals: Aj Hagen MD [Primary Care Provider] - - Patient Instructions Printed Discharge Instructions: DI for Palpitations Additional Instructions: You MUST follow up with your computer hardware developer within 48 hours for further evaluation of your palpitations. You may require continued monitoring with a Holter monitor to make sure you are not going into an abnormal heart rhythm, which can be fatal. You need to take all your medications as prescribed. Your Coumadin level today was low. Take your coumadin as prescribed and have your level checked again within 1 week by your primary doctor. If you experience persistent palpitations, chest pain, shortness of breath, or any other concerning symptoms, return to the ER immediately. - Post Discharge Activity Forms/Work/School Notes: Back to Work - Attestations Physician Attestion: 04/30/17 11:34 I, Dr. Harlan Lorenz MD, attest that this document has been prepared under my direction and personally reviewed by me in its entirety. I further attest, that it accurately reflects all work, treatment, procedures and medical decision -making performed by me.
[2017-04-30 11:50] VITALS: BP 162/92; PULSE 80
--- NOTE | 2017-04-30 15:01 | EKG ---
Test Reason : Blood Pressure : / mmHG Vent. Rate : 089 BPM Atrial Rate : 089 BPM P-R Int : 144 ms QRS Dur : 082 ms QT Int : 384 ms P-R-T Axes : 042 026 029 degrees QTc Int : 467 ms NORMAL SINUS RHYTHM WHEN COMPARED WITH ECG OF 27-AUG-2016 10:12, SINUS RHYTHM HAS REPLACED ATRIAL FIBRILLATION Confirmed by KIMBERLY WILSON MD ([id number]) on 04/30/2017 3:00:55 PM Referred By: MD STEINER Confirmed By:KIMBERLY WILSON MD
== END 2017-04-30 11:50 | disposition home or self-care (01) ==
LOC: FER 04:33
PROC: 3E033GC Introduction of Other Therapeutic Substance into Peripheral Vein, Percutaneous Approach (ICD-10-PCS; principal; 2017-04-30)
DX: R00.2 Palpitations (principal); I48.91 Unspecified atrial fibrillation; I10 Essential (primary) hypertension; E11.9 Type 2 diabetes mellitus without complications; Z79.01 Long term (current) use of anticoagulants
CPT/HCPCS: 36415; 80053; 82550; 83735; 84100; 84484; 84702; 85025; 85610; 93005; 99283-25

== ENCOUNTER 2017-08-28 10:15 | Observation (INO) | payer OTHER ==
[2017-08-28] MEDS ORDERED: ACETAMINOPHEN 500 MG TABLET (FP) PO ONE (10:32)
[2017-08-28] MEDS ORDERED: NAPROXEN 500 MG TABLET (FP) PO ONE (10:36)
[2017-08-28] MEDS ORDERED: NAPROXEN 500 MG TABLET (FP) ONE (10:38)
[2017-08-28] MEDS ORDERED: ACETAMINOPHEN 500 MG TABLET (FP) ONE (10:39)
--- NOTE | 2017-08-28 10:39 | PDOC ---
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 States that she has been through multiple medical problems over the past two months which have kept her out of work. Most recently she was out of work because of left sided cervical lymphadenitis that she states became infected and was treated with Augmentin by her PCP. She went back to work yesterday but noticed at night while going to bed she had the left sided ear pain and fullness. She noticed some drainage out of that ear that self resolved a few days prior. She had trouble sleeping last night because she has been depressed and anxious over the last two days because of all of her medical problems. She went to urgent care this morning to have her ear and lymph nodes evaluated but her pressure was 200s/110s so she was sent to the ED. She did not take her Xanax today because she hasn't eaten in two days in the setting of depression. She denies active suicidality/ homicidality but has passive ideation. The majority of her depression stems from a recent in her family and the departure of her children from her home that has caused her great grief. Denies any fevers, chills, nausea, vomiting, diarrhea, visual symptoms, voice change. or other symptoms. Her PCP is Dr. Hagen. 08/28/17 10:39 Past History - Past Medical History Allergies/Adverse Reactions: Allergies Allergy/AdvReac Type Severity Reaction Status Date / Time No Known Allergies Allergy Verified 08/28/17 10:23 Home Medications: Ambulatory Orders Warfarin Sodium 5 mg PO HS tablet 07/30/16 Lisinopril 10 mg PO DAILY tablet 12/06/16 Metoprolol Tartrate 50 mg PO BID tablet 12/06/16 Sotalol HCl [Sotalol] 80 mg PO BID tablet 12/06/16 Alprazolam [Xanax] 1 mg PO BID 04/30/17 Amoxicillin/Potassium Clav [Augmentin 875-125 Tablet] 1 each PO BID 08/28/17 Amoxicillin/Potassium Clav [Augmentin 875-125 Tablet] 1 each PO BID 7 Days #14 tablet 08/28/17 Fluoxetine HCl [Prozac] 10 mg PO DAILY 08/28/17 Metformin HCl 500 mg PO BID 08/28/17 Neomycin/Polymyxn/Hc [Cortisporin Otic Solution -] 4 drop QID #120 drops Cardiac Disorders: Yes (AFIB) COPD: No Diabetes: Yes HTN: Yes Psychiatric Problems: Yes (ANXIETY) - Surgical History Cholecystectomy: Yes - Suicide/Smoking/Psychosocial Hx Smoking History: Never smoked Have you smoked in the past 12 months: No Hx Alcohol Use: No Drug/Substance Use Hx: No Substance Use Type: None Hx Substance Use Treatment: No Review of Systems - Review of Systems Constitutional: No: Chills, Diaphoresis, Fever HEENTM: Yes: Ear Pain. No: Eye Pain, Blurred Vision, Tearing, Recent change in vision, Hearing Loss Respiratory: No: Cough, Orthopnea, Shortness of Breath, SOB with Exertion, SOB at Rest Cardiac (ROS): Yes: Irregular Heart Rate. No: Chest Pain, Edema ABD/GI: Yes: Poor Appetite, Poor Fluid Intake. No: Diarrhea, Difficulty Swallowing, Nausea, Vomiting : No: Burning, Dysuria, Discharge Musculoskeletal: No: Back Pain, Joint Pain, Muscle Weakness Integumentary: Yes: Lumps. No: Bruising, Lesions, Pruritus Neurological: No: Headache, Numbness, Paresthesia, Ataxia Psychiatric: Yes: Anxiety, Depression, Frequent Crying, Stressors, Sleep Pattern Change, Emotional Problems, Change in Appetite *Physical Exam - Vital Signs Last Vital Signs Temp Pulse Resp BP Pulse Ox 98.9 F 107 H 18 169/101 100 08/28/17 10:16 08/28/17 10:16 08/28/17 10:16 08/28/17 10:16 08/28/17 10:16 - Physical Exam General Appearance: Yes: Nourished, Appropriately Dressed. No: Apparent Distress HEENT: positive: EOMI, NORMA, Normal Voice, Rhinorrhea, Lesions (Left ear canal granulation without erythema or active drainage. Membrane intact, nonerythematous, and without bulge. Right TM and auditory canal WNL.). negative : Normal ENT Inspection, TMs Normal, Muffled/Hoarse voice Neck: positive: Trachea midline, Normal Thyroid, Supple, Lymphadenopathy (L). negative: Tender, Rigid Respiratory/Chest: positive: Lungs Clear, Normal Breath Sounds. negative: Chest Tender, Respiratory Distress, Accessory Muscle Use Gastrointestinal/Abdominal: positive: Normal Bowel Sounds, Flat, Soft. negative : Tender Musculoskeletal: positive: Normal Inspection. negative: Decreased Range of Motion Extremity: positive: Normal Capillary Refill, Normal Inspection, Normal Range of Motion. negative: Tender Integumentary: positive: Normal Color, Dry, Warm Neurologic: positive: Fully Oriented, Alert, Normal Mood/Affect, Normal Response , Motor Strength 08/02 ED Treatment Course - LABORATORY CBC & Chemistry Diagram: 08/28/17 14:15 08/28/17 14:15 Medical Decision Making - Medical Decision Making 42 year old female with history of HTN, anxiety, depression, and recent left sided cervical lymphadenitis presenting with left sided ear pain, chest discomfort, hypertensive, and anxiety/ depression without active suicidality/ homicidality. Left ear canal most concerning for otitis externa with otitis media . EKG demonstrating HR 96, QRS 86, TN 12, QTc [address] changes. Given prolonged QTc, we will avoid QT prolonging medications i.e Levaquin. Her pressures remained elevated in the ED but responsive to labetalol 10 IV. Will treat with polymixin/ neomicin 4 drops QID for one week and Augmentin 875 BID for one week. We also spoke to Dr. Bravo regarding her depression and he suggested that she follow up outpatient with the female therapist and that she was stable to seek outpatient therapy as she was not actively suicidal. Because of patient's chest pain, hypertensive urgency, and risk factors we will admit for tele obs. Signed out to EILEEN Eid, under Dr. Del Cid. 08/28/17 10:54 *DC/Admit/Observation/Transfer Diagnosis at time of Disposition: Hypertensive urgency Otitis externa Qualifiers: Otitis externa type: unspecified type Chronicity: acute Laterality: left Qualified Code(s): H60.502 - Unspecified acute noninfective otitis externa, left ear Otitis media Qualifiers: Otitis media type: unspecified Chronicity: subacute Qualified Code(s): H66.90 - Otitis media, unspecified, unspecified ear - Discharge Dispostion Condition at time of disposition: Stable Decision to Admit order: Yes - Prescriptions Prescriptions: Amoxicillin/Potassium Clav [Augmentin 875-125 Tablet] 1 each PO BID 7 Days #14 tablet Neomycin/Polymyxn/Hc [Cortisporin Otic Solution -] 4 drop QID #120 drops - Referrals Referrals: Aj Hagen MD [Primary Care Provider] - Rashid Donovan MD [Staff Physician] - - Patient Instructions Printed Discharge Instructions: DI for Otitis Externa Additional Instructions: You have an infection of your outer ear known as otitis externa. Please use the ear drops as directed. Please follow up with Dr. Carter today. You can use tylenol and short course of naproxen (<1 week) for your pain. Please return to the ED for new or worsening symptoms. - Post Discharge Activity Forms/Work/School Notes: Back to Work
[2017-08-28] MEDS ORDERED: FLUoxetine HCL 10 MG CAPSULE (FP) PO ONE (11:23)
--- NOTE | 2017-08-28 11:29 | PDOC ---
Attending Attestation - Resident Resident Name: Adrienne Doll - ED Attending Attestation I have performed the following: I have examined & evaluated the patient, The case was reviewed & discussed with the resident, I agree w/resident's findings & plan, Exceptions are as noted - HPI HPI: 08/28/17 11:18 42-year-old female patient with history of anxiety, depression, atrial fibrillation on Coumadin presents with left ear pain. Approximately 2 weeks ago , the patient had developed "gland" pain and swelling around left-sided neck which she was given a prescription for amoxicillin. The patient reports complete adherence and completed the dose of medications 2 days ago. She reported that the swelling had improved but towards the end of taking the medication, patient started developing left ear pain and drainage. She reports pain along the tragus of the left ear. Denies fevers or chills. Denies sore throat. In the last two days, patient has been having difficulty sleeping secondary to the pain. In addition, the patient has been endorsing depression. She states that in the last year, she has been having personal difficulties. 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 The daughter and granddaughter had recently moved out, and the patient has been feeling more lonely. She reports that she does not have many friends, and is attempting to manage her two jobs ( which can add up to about 80 hours/week). The patient states that she feels anxious about financial worries, and states that she lately has been feeling hopeless and with poor appetite. She states that it's difficult to motivate herself. She denies active SI but endorses passive SI ("I feel there are days when it would be better if I wasn't around."). The patient does not see a psychiatrist or therapist, and states that her granddaughter is what's motivating her to keep on going. - Physicial Exam PE: 08/28/17 11:30 GENERAL: Awake, alert, and fully oriented, in no acute distress. +tearful. HEAD: No signs of trauma EYES: EOMI, sclera anicteric, conjunctiva clear ENT: Auricles normal inspection, hearing grossly normal, nares patent. + left TM with fullness and dullness. Left ear canal with debris and pain on palpation of tragus. NECK: Normal ROM, supple LUNGS: Breath sounds equal, clear to auscultation bilaterally. No wheezes, and no crackles HEART: Regular rate and rhythm, normal S1 and S2, no murmurs, rubs or gallops ABDOMEN: Soft, nontender, No guarding, no rebound. No masses EXTREMITIES: Normal range of motion, no edema. No clubbing or cyanosis. No cords, erythema, or tenderness NEUROLOGICAL: Cranial nerves II through XII grossly intact. Normal speech, normal gait SKIN: Warm, Dry, normal turgor, no rashes or lesions noted. - Medical Decision Making 08/28/17 11:30 Vital Signs Temp Pulse Resp BP Pulse Ox 98.9 F 92 H 17 166/90 100 08/28/17 10:16 08/28/17 11:23 08/28/17 11:23 08/28/17 11:23 08/28/17 11:23 Left Ear: Findings are consistent with otitis externa No clinical evidence of malignant otitis externa or mastoiditis. Will initiate polymixin B/neomycin/hydrotisone otic drops x 1 week Pt likely with persistent otitis media Will change to augmentin and have patient complete 1 week course. NSAIDS/tylenol for pain control. Depression: The patient is quite depressed. However, I do not feel that the patient is an immediate risk to herself and can follow up as an outpatient. The case was discussed with psychiatrist Dr. Salgado who agrees that the patient can be discharged with outpatient follow up and recommends that she obtains a therapist , as discussing her issues will likely be therapeutic for her. We had contacted the in regards to assisting outpatient set up. HTN: I suspect the elevated BP is due 2/2 to pain and being upset/tearful. Treat underlying cause. 08/28/17 13:12 Pt's BP remains persistently high above 200s systolic and above 130s dialstolic. Despite numerous readings. Pt has now been endorsing intermittent chest pain. Will obtain labs including troponin, give asa, and control BP. Admit <Jayce Walls - Last Filed: 08/28/17 13:12> - Medical Decision Making 08/28/17 14:[address] Salgado. <Bright Benoit - Last Filed: 08/28/17 15:00> Heart Score/ECG Review #1 ECG reviewed & interpreted by me at: 10:35 08/28/17 11:29 NSR 96, no std/andrea, normal axis, normal intervals, QTC 505 msec <Jayce Walls - Last Filed: 08/28/17 13:12> Attestations - Attestations Documentation prepared by Bright Benoit, acting as medical sales representative for Jayce Walls MD. <Bright Bneoit - Last Filed: 08/28/17 15:00>
[2017-08-28] MEDS ORDERED: ASPIRIN 81 MG CHEWABLE TABLETS PO ONE (13:00)
[2017-08-28] MEDS ORDERED: ASPIRIN 325 MG TABLET ONE (13:12)
[2017-08-28] MEDS ORDERED: ALPRAZolam 1 MG TABLET PO PRN (13:14)
[2017-08-28] MEDS ORDERED: AMOX TR/POT CLAV 875MG/125MG TABLETS (FP) PO ONE (13:27)
[2017-08-28] MEDS ORDERED: LABETALOL HCL 5 MG/1 ML (100MG/20 ML VIAL) IVPUSH ONE (13:29)
--- NOTE | 2017-08-28 13:31 | EKG ---
Test Reason : Blood Pressure : / mmHG Vent. Rate : 096 BPM Atrial Rate : 096 BPM P-R Int : 142 ms QRS Dur : 086 ms QT Int : 400 ms P-R-T Axes : 039 040 041 degrees QTc Int : 505 ms NORMAL SINUS RHYTHM PROLONGED QT ABNORMAL ECG WHEN COMPARED WITH ECG OF 30-APR-2017 04:27, NO SIGNIFICANT CHANGE WAS FOUND Confirmed by NU ALVA MD ([id number]) on 08/28/2017 1:31:01 PM Referred By: MENG FERNANDEZ Confirmed By:NU ALVA MD
[2017-08-28] MEDS ORDERED: LABETALOL HCL 5 MG/1 ML (100MG/20 ML VIAL) ONE (14:21)
[2017-08-28] MEDS ORDERED: ALPRAZolam 0.25 MG TABLET ONE (14:21)
[2017-08-28] MEDS ORDERED: NEOMYCIN/POLYMYXN/HC OTIC SOLUTION 10 ML BOTTLE ONE (14:21)
[2017-08-28] MEDS ORDERED: AMOX TR/POT CLAV 875MG/125MG TABLETS (FP) ONE (14:22)
[2017-08-28] MEDS: NEOMYCIN/POLYMYXN/HC OTIC SOLUTION 10 ML BOTTLE AS SCH ×2 (14:30→18:38)
[2017-08-28 14:33] LABS: MCH 25.8 pg (25.7-33.7)
[2017-08-28 14:36] LABS: INR 1.08 (0.82-1.09); PROTHROMBIN TIME (PATIENT) 12.1 SEC (10.2-13.0)
[2017-08-28 14:37] LABS: BASO % 1.7 % (0-2.0); EOS % 0.7 % (0-4.5); HEMATOCRIT 39.4 % (32.4-45.2); HEMOGLOBIN 12.8 GM/dl (10.7-15.3); LYMPH % 33.9 % (8-40); MCHC 32.4 g/dl (32.0-36.0); MEAN CELL VOLUME 79.6 fl (80-96); MEAN PLT VOLUME 10.8 fl (7.5-11.1); MONO % 6.5 % (3.8-10.2); NEUT % 57.2 % (42.8-82.8); PLATELET COUNT 203 K/MM3 (134-434); RBC 4.95 M/mm3 (3.60-5.2); RDW 13.6 % (11.6-15.6); WHITE BLOOD COUNT 6.7 K/mm3 (4.0-10.8)
[2017-08-28 14:40] LABS: ALBUMIN 3.6 g/dl (3.5-5.0); ALK PHOS 75 U/L (32-92); ANION GAP 8 (8-16); BILIRUBIN,TOTAL 0.5 mg/dl (0.2-1.0); BLOOD UREA NITROGEN 10 mg/dl (7-18); CALCIUM 8.6 mg/dl (8.4-10.2); CHLORIDE 100 mmol/L (98-107); CO2 24 mmol/L (22-28); GLUCOSE,RANDOM 215 mg/dl (74-106); SGOT/AST 18 U/L (10-42); SGPT/ALT 10 U/L (10-40); SODIUM 132 mmol/L (136-145); TOT PROT 7.6 g/dl (6.4-8.3)
[2017-08-28 14:43] LABS: CREATININE < 0.8 mg/dl (0.6-1.3)
[2017-08-28] MEDS ORDERED: ENOXAPARIN NA (PORCINE) 120 MG/0.8 ML DISP.SYRIN SQ ONE (15:30)
[2017-08-28] MEDS ORDERED: ENOXAPARIN NA (PORCINE) 120 MG/0.8 ML DISP.SYRIN SQ SCH (15:30)
[2017-08-28 20:21] LABS: URINE APPEARANCE Clear; URINE BILIRUBIN Negative (NEGATIVE); URINE BLOOD Trace-intact (NEGATIVE); URINE GLUCOSE (UA) 1+ (NEGATIVE); URINE KETONE 1+ (NEGATIVE); URINE LEUK ESTERASE 1+ (NEGATIVE); URINE NITRITE Negative (NEGATIVE); URINE PROTEIN 2+ (NEGATIVE)
[2017-08-28 20:22] LABS: URINE COLOR YELLOW
[2017-08-28] MEDS: ACETAMINOPHEN 325 MG TABLET (FP) PO PRN (20:30)
[2017-08-28 20:58] LABS: EPI CELLS FEW /HPF; URINE BACTERIA MODERATE /hpf (NEGATIVE)
--- NOTE | 2017-08-28 22:33 | HP ---
CHIEF COMPLAINT: Elevated Blood Pressure, Chest Pain, Depression, Left Ear Pain PCP: Dr. Hagen HISTORY OF PRESENT ILLNESS: This is a 42 y/o HTN, Afib (on Coumadin), Anxiety. Who presents to the ED with Elevated BP, Chest Pain, Left ear pain, Depression sent in from Urgent Care. 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 Recently treated for L- lympadenitis, Amoxicillin for 2 weeks. Patient reports taking the full course and noted L-ear pain, fullness and fluid discharge today. Patient reports taking her regular scheduled meds, and attributed her elevated BP and CP- now resolved, to stress and severe ear pain. Patient endorses that she takes her medications daily. Patient reports feeling depressed and lonely, she indicated that she lives alone and has only a few friends. Patient denies suicidal or homicidal ideation at present. Patient is currently not receiving psychiatric services. 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 Family History: Allergies No Known Allergies Allergy (Verified 08/28/17 10:23) HOME MEDICATIONS: Home Medications Medication Instructions Recorded Warfarin Sodium 5 mg PO HS tablet 07/30/16 Lisinopril 10 mg PO DAILY tablet 12/06/16 Metoprolol Tartrate 50 mg PO BID tablet 12/06/16 Sotalol HCl [Sotalol] 80 mg PO BID tablet 12/06/16 Alprazolam [Xanax] 1 mg PO BID 04/30/17 Amoxicillin/Potassium Clav 1 each PO BID 08/28/17 [Augmentin 875-125 Tablet] Amoxicillin/Potassium Clav 1 each PO BID 7 Days #14 tablet 08/28/17 [Augmentin 875-125 Tablet] Fluoxetine HCl [Prozac] 10 mg PO DAILY 08/28/17 Metformin HCl 500 mg PO BID 08/28/17 Neomycin/Polymyxn/Hc [Cortisporin 4 drop QID #120 drops 08/28/17 Otic Solution -] REVIEW OF SYSTEMS CONSTITUTIONAL: malaise, loss of appetite Absent: fever, chills, diaphoresis, generalized weakness, weight change HEENT: ear pain, Absent: rhinorrhea, nasal congestion, throat pain, throat swelling, difficulty swallowing, mouth swelling, eye pain, visual changes CARDIOVASCULAR: chest pain Absent: syncope, palpitations, irregular heart rate, lightheadedness, peripheral edema RESPIRATORY: Absent: cough, shortness of breath, dyspnea with exertion, orthopnea, wheezing, stridor, hemoptysis GASTROINTESTINAL: Absent: abdominal pain, abdominal distension, nausea, vomiting, diarrhea, constipation, melena, hematochezia GENITOURINARY: Absent: dysuria, frequency, urgency, hesitancy, hematuria, flank pain, genital pain MUSCULOSKELETAL: Absent: myalgia, arthralgia, joint swelling, back pain, neck pain SKIN: Absent: rash, itching, pallor HEMATOLOGIC/IMMUNOLOGIC: lymphadenopathy Absent: easy bleeding, easy bruising, lymphadenopathy, frequent infections ENDOCRINE: Absent: unexplained weight gain, unexplained weight loss, heat intolerance, cold intolerance NEUROLOGIC: Absent: headache, focal weakness or paresthesias, dizziness, unsteady gait, seizure, mental status changes, bladder or bowel incontinence PSYCHIATRIC: anxiety, depression Absent: anxiety, depression, suicidal or homicidal ideation, hallucinations. PHYSICAL EXAMINATION Vital Signs - 24 hr 08/28/17 08/28/17 08/28/17 10:16 10:39 10:45 Temperature 98.9 F Pulse Rate 107 H Pulse Rate [ Apical] Pulse Rate [ 100 H 101 H Right Radial] Respiratory 18 17 16 Rate Blood Pressure 169/101 Blood Pressure 198/100 174/98 [Left Arm] O2 Sat by Pulse 100 100 100 Oximetry (%) 08/28/17 08/28/17 08/28/17 11:14 11:23 12:15 Temperature Pulse Rate Pulse Rate [ 87 87 Apical] Pulse Rate [ 92 H Right Radial] Respiratory 17 17 17 Rate Blood Pressure Blood Pressure 161/89 166/90 208/120 [Left Arm] O2 Sat by Pulse 100 100 100 Oximetry (%) 08/28/17 08/28/17 08/28/17 14:43 16:15 21:12 Temperature 98.3 F 97.8 F Pulse Rate 84 99 H Pulse Rate [ 88 Apical] Pulse Rate [ Right Radial] Respiratory 14 16 18 Rate Blood Pressure 171/101 143/77 Blood Pressure 162/99 [Left Arm] O2 Sat by Pulse 99 Oximetry (%) GENERAL: Severe Obesity, awake, alert, and fully oriented, tearful, in no moderate distress. HEAD: Normal with no signs of trauma. EYES: Pupils equal, round and reactive to light, extraocular movements intact, sclera anicteric, conjunctiva clear. No lid lag. EARS, NOSE, THROAT: L- Ear TM bulging, erythema, TN to L- Pinna. R-Ear normal, nares patent, oropharynx clear without exudates. Moist mucous membranes. NECK:+ Left- lymphadenopathy. Normal range of motion, supple. JVD, or masses. LUNGS: Breath sounds equal, clear to auscultation bilaterally. No wheezes, and no crackles. No accessory muscle use. HEART: Irregular rate and rhythm, normal S1 and S2 without murmur, rub or gallop. ABDOMEN: Soft, nontender, not distended, normoactive bowel sounds, no guarding, no rebound, no masses. No hepatomegaly or splenomegaly. MUSCULOSKELETAL: Normal range of motion at all joints. No bony deformities or tenderness. No CVA tenderness. UPPER EXTREMITIES: 2+ pulses, warm, well-perfused. No cyanosis. No clubbing. No peripheral edema. LOWER EXTREMITIES: 2+ pulses, warm, well-perfused. No calf tenderness. No peripheral edema. NEUROLOGICAL: Cranial nerves II-XII intact. Normal speech. Gait not observed. PSYCHIATRIC: Cooperative,tearful. Good eye contact. Somber mood and flat affec t. SKIN: Warm, dry, normal turgor, no rashes or lesions noted, normal capillary refill. Tattoos Laboratory Results - last 24 hr 08/28/17 08/28/17 08/28/17 14:15 14:15 14:15 WBC 6.7 RBC 4.95 Hgb 12.8 Hct 39.4 MCV 79.6 L MCH 25.8 MCHC 32.4 RDW 13.6 Plt Count 203 MPV 10.8 Neutrophils % 57.2 Lymphocytes % 33.9 Monocytes % 6.5 Eosinophils % 0.7 Basophils % 1.7 PT with INR INR Sodium 132 L Potassium 4.0 Chloride 100 Carbon Dioxide 24 Anion Gap 8 BUN 10 Creatinine < 0.8 D Creat Clearance w eGFR > 60 Random Glucose 215 H D Calcium 8.6 Total Bilirubin 0.5 D AST 18 D ALT 10 D Alkaline Phosphatase 75 Troponin I < 0.03 Total Protein 7.6 Albumin 3.6 Urine Color Urine Appearance Urine pH Ur Specific [place] Urine Protein Urine Glucose (UA) Urine Ketones Urine Blood Urine Nitrite Urine Bilirubin Urine Urobilinogen Ur Leukocyte Esterase Urine RBC Urine WBC Ur Epithelial Cells Urine Bacteria Urine HCG, Qual 08/28/17 08/28/17 08/28/17 14:15 20:00 20:00 WBC RBC Hgb Hct MCV MCH MCHC RDW Plt Count MPV Neutrophils % Lymphocytes % Monocytes % Eosinophils % Basophils % PT with INR 12.1 INR 1.08 Sodium Potassium Chloride Carbon Dioxide Anion Gap BUN Creatinine Creat Clearance w eGFR Random Glucose Calcium Total Bilirubin AST ALT Alkaline Phosphatase Troponin I Total Protein Albumin Urine Color Yellow Urine Appearance Clear Urine pH 6.0 Ur Specific [place] 1.010 Urine Protein 2+ H Urine Glucose (UA) 1+ H Urine Ketones 1+ H Urine Blood Trace-intact H Urine Nitrite Negative Urine Bilirubin Negative Urine Urobilinogen 1.0 Ur Leukocyte Esterase 1+ H Urine RBC 2-5 Urine WBC 10-20 Ur Epithelial Cells Few Urine Bacteria Moderate Urine HCG, Qual Negative 08/28/17 20:30 WBC RBC Hgb Hct MCV MCH MCHC RDW Plt Count MPV Neutrophils % Lymphocytes % Monocytes % Eosinophils % Basophils % PT with INR INR Sodium Potassium Chloride Carbon Dioxide Anion Gap BUN Creatinine Creat Clearance w eGFR Random Glucose Calcium Total Bilirubin AST ALT Alkaline Phosphatase Troponin I 0.03 Total Protein Albumin Urine Color Urine Appearance Urine pH Ur Specific [place] Urine Protein Urine Glucose (UA) Urine Ketones Urine Blood Urine Nitrite Urine Bilirubin Urine Urobilinogen Ur Leukocyte Esterase Urine RBC Urine WBC Ur Epithelial Cells Urine Bacteria Urine HCG, Qual ASSESSMENT/PLAN: 42 y/o woman PMHx: Afib (on Coumadin), HTN, Anxiety. Placed in Tele Observation for Hypertensive Urgency, Chest Pain r/o ACS, Subtherapeutic INR. Plan: Will place on Tele Observation for Hypertensive Urgency, Chest Pain r/o ACS, Subtherapuetic INR, Depression, Acute Otitis Media, Otitis Externa Continue Cardiac monitoring Serial Enzymes HEART Score 3 Labetolol given in ED- BP improving Will continue home meds with parameters Monitor renal function Appreciate Cardiology consult Echo Lipid Panel, HgbA1c in am [id number] 3 Given Lovenox for subtherapeutic INR, Coumadin ordered tonight Series INR Will continue Lovenox BID for AC- bridge until therapeutic INR (2.0~3.0) Hold Prozac 2/2 Prolonged QT Chest Xray ordered- patient adamantly refused, discussed benefits vs risks, patient declined Appreciate Psych consult FU with outpatient psychotherapy Continue Xanax Continue Cortisporin, Augmentin for Otitis Media, Otitis Externa Repeat CBC, BMP in am DVT ppx- OOB, SCDs, Coumadin Code Status: Full Code Dispo Tele Obs Problem List - Problem (1) Hypertensive urgency Code(s): I16.0 - HYPERTENSIVE URGENCY (2) Chest pain Code(s): R07.9 - CHEST PAIN, UNSPECIFIED (3) Depression Code(s): F32.9 - MAJOR DEPRESSIVE DISORDER, SINGLE EPISODE, UNSPECIFIED (4) Otitis externa Code(s): H60.90 - UNSPECIFIED OTITIS EXTERNA, UNSPECIFIED EAR Qualifiers: Otitis externa type: unspecified type Chronicity: acute Laterality: left Qualified Code(s): H60.502 - Unspecified acute noninfective otitis externa, left ear (5) Otitis media Code(s): H66.90 - OTITIS MEDIA, UNSPECIFIED, UNSPECIFIED EAR Qualifiers: Otitis media type: unspecified Chronicity: subacute Qualified Code(s): H66.90 - Otitis media, unspecified, unspecified ear (6) Hyperglycemia Code(s): R73.9 - HYPERGLYCEMIA, UNSPECIFIED (7) Anxiety Code(s): F41.9 - ANXIETY DISORDER, UNSPECIFIED Visit type - Emergency Visit Emergency Visit: Yes ED Registration Date: 08/28/17 Care time: The patient presented to the Emergency Department on the above date and was hospitalized for further evaluation of their emergent condition. - New Patient This patient is new to me today: Yes Date on this admission: 08/28/17 - Critical Care Critical Care patient: No Hospitalist Screening - Colonoscopy Questionnaire Colonoscopy Questionnaire: Colonoscopy Questionnaire - Patient: 50 - 75 years old and never had a screening colonoscopy: No History of colon or rectal polyps, or CA: No History of IBD, Crohn's disease or UC: No History of abdominal radiation therapy as a child: No - Relative: 1 with colon or rectal CA, or polyps at age 60 or younger: No Colon or rectal CA diagnosed at age 45 or younger: No Multiple relatives with colon or rectal CA: No - Outcome: Screening Result: Negative Screen
[2017-08-29] MEDS: oxyCODONE HCL 5 MG TABLET PO PRN ×2 (00:57→06:38)
[2017-08-29] MEDS: NEOMYCIN/POLYMYXN/HC OTIC SOLUTION 10 ML BOTTLE AS SCH ×4 (00:59→17:20)
[2017-08-29] MEDS ORDERED: HYDROmorphone HCL CARPU-JECT 1 MG/1 ML DISP.SYRIN IVPUSH ONE (01:37)
[2017-08-29] MEDS ORDERED: HYDROmorphone HCL CARPU-JECT 2 MG/1 ML DISP.SYRIN ONE ×2 (01:56→13:25)
[2017-08-29] MEDS ORDERED: WARFARIN NA 5 MG TABLET (UD) PO SCH ×2 (02:00→18:00)
[2017-08-29] MEDS: LISINOPRIL 10 MG TABLET (FP) PO SCH (09:20)
[2017-08-29] MEDS: ALPRAZolam 1 MG TABLET PO SCH ×2 (09:20→21:59)
[2017-08-29] MEDS: AMOX TR/POT CLAV 875MG/125MG TABLETS (FP) PO SCH ×2 (09:20→17:20)
[2017-08-29 09:29] LABS: INR 1.06 (0.82-1.09); PROTHROMBIN TIME (PATIENT) 11.8 SEC (10.2-13.0)
[2017-08-29] MEDS ORDERED: morphine CARPU-JECT 2 MG/1 ML DISP.SYRIN SQ PRN (09:42)
[2017-08-29] MEDS ORDERED: ASPIRIN 81 MG CHEWABLE TABLETS PO SCH (10:00)
[2017-08-29] MEDS ORDERED: METOPROLOL TARTRATE 50 MG TABLET (FP) PO SCH (10:00)
--- NOTE | 2017-08-29 12:04 | PN ---
Physical Exam: SUBJECTIVE: Patient seen and examined. Reports head ache and left ear pain. Denies fever, chills, sob. OBJECTIVE: Vital Signs Period Temp Pulse Resp BP Sys/Cruz Pulse Ox Last 24 Hr 97.8 F-98.3 F 84-99 14-20 141-208/77-120 97-100 PE Neuro: alert, awake, cn 2-12intact HEENT: left ear tenderness, red external meatus Pulm: CTAB CV: s1 s2 irregular rhythm regular rate Abd: S nt nd +bs Ext: Warm, no le edema Laboratory Results - last 24 hr 08/28/17 08/28/17 08/28/17 14:15 14:15 14:15 WBC 6.7 RBC 4.95 Hgb 12.8 Hct 39.4 MCV 79.6 L MCH 25.8 MCHC 32.4 RDW 13.6 Plt Count 203 MPV 10.8 Neutrophils % 57.2 Lymphocytes % 33.9 Monocytes % 6.5 Eosinophils % 0.7 Basophils % 1.7 PT with INR INR Sodium 132 L Potassium 4.0 Chloride 100 Carbon Dioxide 24 Anion Gap 8 BUN 10 Creatinine < 0.8 D Creat Clearance w eGFR > 60 Random Glucose 215 H D Calcium 8.6 Total Bilirubin 0.5 D AST 18 D ALT 10 D Alkaline Phosphatase 75 Troponin I < 0.03 Total Protein 7.6 Albumin 3.6 Urine Color Urine Appearance Urine pH Ur Specific [place] Urine Protein Urine Glucose (UA) Urine Ketones Urine Blood Urine Nitrite Urine Bilirubin Urine Urobilinogen Ur Leukocyte Esterase Urine RBC Urine WBC Ur Epithelial Cells Urine Bacteria Urine HCG, Qual 08/28/17 08/28/17 08/28/17 14:15 20:00 20:00 WBC RBC Hgb Hct MCV MCH MCHC RDW Plt Count MPV Neutrophils % Lymphocytes % Monocytes % Eosinophils % Basophils % PT with INR 12.1 INR 1.08 Sodium Potassium Chloride Carbon Dioxide Anion Gap BUN Creatinine Creat Clearance w eGFR Random Glucose Calcium Total Bilirubin AST ALT Alkaline Phosphatase Troponin I Total Protein Albumin Urine Color Yellow Urine Appearance Clear Urine pH 6.0 Ur Specific [place] 1.010 Urine Protein 2+ H Urine Glucose (UA) 1+ H Urine Ketones 1+ H Urine Blood Trace-intact H Urine Nitrite Negative Urine Bilirubin Negative Urine Urobilinogen 1.0 Ur Leukocyte Esterase 1+ H Urine RBC 2-5 Urine WBC 10-20 Ur Epithelial Cells Few Urine Bacteria Moderate Urine HCG, Qual Negative 08/28/17 08/29/17 20:30 09:00 WBC RBC Hgb Hct MCV MCH MCHC RDW Plt Count MPV Neutrophils % Lymphocytes % Monocytes % Eosinophils % Basophils % PT with INR 11.8 INR 1.06 Sodium Potassium Chloride Carbon Dioxide Anion Gap BUN Creatinine Creat Clearance w eGFR Random Glucose Calcium Total Bilirubin AST ALT Alkaline Phosphatase Troponin I 0.03 Total Protein Albumin Urine Color Urine Appearance Urine pH Ur Specific [place] Urine Protein Urine Glucose (UA) Urine Ketones Urine Blood Urine Nitrite Urine Bilirubin Urine Urobilinogen Ur Leukocyte Esterase Urine RBC Urine WBC Ur Epithelial Cells Urine Bacteria Urine HCG, Qual Active Medications Generic Name Dose Route Start Last Admin Trade Name Freq PRN Reason Stop Dose Admin Acetaminophen 650 mg 08/28/17 20:09 08/28/17 20:30 Tylenol - PO 650 mg Q6H PRN Administration FEVER Alprazolam 1 mg 08/28/17 13:14 08/28/17 14:25 Xanax PO 1 mg ONCE PRN Administration ANXIETY Alprazolam 1 mg 08/29/17 10:00 08/29/17 09:20 Xanax PO 1 mg BID GRETEL Administration Amoxicillin/Clavulanate Potassium 1 tab 08/29/17 08:00 08/29/17 09:20 Augmentin - 875mg Tablet PO 1 tab BID@0800,1730 GRETEL Administration Aspirin 81 mg 08/29/17 10:00 08/29/17 09:20 Asa - PO 81 mg DAILY GRETEL Administration Enoxaparin Sodium 100 mg 08/29/17 10:00 Lovenox - SQ BID GRETEL Lisinopril 10 mg 08/29/17 10:00 08/29/17 09:20 Prinivil PO 10 mg DAILY GRETEL Administration Metoprolol Tartrate 50 mg 08/29/17 10:00 Lopressor - PO BID GRETEL Morphine Sulfate 2 mg 08/29/17 09:42 Morphine Injection - SQ Q4H PRN PAIN LEVEL 4 - 6 Neomycin/Polymyxin/Hydrocortisone 4 drop 08/28/17 13:26 08/29/17 08:02 Cortisporin Otic Solution - 4 drop Q6HPO GRETEL Administration Oxycodone HCl 10 mg 08/29/17 00:50 08/29/17 06:38 Roxicodone - PO 10 mg Q6H PRN Administration PAIN LEVEL 7 - 10 Sotalol HCl 80 mg 08/29/17 10:00 Betapace - PO BID GRETEL Warfarin Sodium 5 mg 08/29/17 18:00 Coumadin - PO DAILY@1800 [facility] Assessment: 42 year old female with HTN, A-fib (on Coumadin), anxiety admitted with hypertensive urgency, chest pain and ear pain. Plan: 1. Hypertensive urgency - Improved - Stop lopressor, pt no longer takes - Continue sotolol 80mg bid - Lisinopril 10mg daily 2. Chest discomfort - trops x2 neg - Cardiology consulted 3. A fib with prolonged OTC - Rate controlled - Sub therapeutic INR - Start lovenox 100 bid - Increase coumadin 7.5mg hs - Hold prozac 4. Depression - Prozac on hold - Xanax cont - Outpt psych therapy 5. Otitis media, externa - Continue polymixin drops - Continue augmentin - Continues to require IV dilaudid for pain 6. DVT - on Coumadin Visit type - Emergency Visit Emergency Visit: Yes ED Registration Date: 08/28/17 Care time: The patient presented to the Emergency Department on the above date and was hospitalized for further evaluation of their emergent condition. - New Patient This patient is new to me today: Yes Date on this admission: 08/29/17 - Critical Care Critical Care patient: No
[2017-08-29] MEDS: ENOXAPARIN NA (PORCINE) 100 MG/1 ML DISP.SYRIN SQ SCH ×2 (12:15→21:59)
--- NOTE | 2017-08-29 13:20 | CON.CARD ---
Cardiology Consult (text) - Consultation Consultation Note: CC: uncontrolled htn History of Present Illness: 42 yo with h/o pafib/nsvt s/p unsuccesful VT ablation 06/2016 and repeat VT ablation 07/2016 on sotalol, HTN, niddm, anxiety on xanax/depression on prozac, obesity and recent episode of cervical lymphadenitis who p/w uncontrolled htn. Was having persistent ear sx's and + anxiety over her recent multiple medical problems --> evaluated by urgent care today and noted to have sbp around 200s/ 110s --> referred to ER. No recent dietary indiscretions, missed meds, etoh/ nsaid/decongestant use. In ER bp went up to 208/120. sbp came down to 160's after labetolol 10 mg IV x 1. + increased depression in setting of her daughter and granddaughter recently moving out (also lost her father this year) --> no po intake x 2 days. per report, denies active suicidality/ homicidality but has passive ideation. - noted to be hyponatremic on presentation Had brief episode of cp that resolved with burping. ER course notable for prolonged qtc on ekg. Thought to have ear infection --> treated. s/p xanax, asa, lovenox (subtherapeutic INR), labetolol 10 mg IV x 1 yesterday and lisinopril 10 mg po today. Denies sob, orthopnea, pnd, le edema, palps, dizziness, bleeding, claudication or transient neurologic symptoms Denies f/c/s, n/v/d, cough, congestion, rash, h/a, visual disturbances. + h/a [facility]. Dr. Audelia Nick (EP) pmhx/pshx: per hpi, Cholecystectomy social hx: Never smoked fam hx: Premature cad, Father - cad s/p cabg, pci. first intervention in his 50 's. ros: per hpi Ambulatory Orders Warfarin Sodium 5 mg PO HS tablet 07/30/16 Lisinopril 10 mg PO DAILY tablet 12/06/16 Sotalol HCl [Sotalol] 80 mg PO BID tablet 12/06/16 Alprazolam [Xanax] 1 mg PO BID 04/30/17 Amoxicillin/Potassium Clav [Augmentin 875-125 Tablet] 1 each PO BID 7 Days #14 tablet 08/28/17 Fluoxetine HCl [Prozac] 10 mg PO DAILY 08/28/17 Metformin HCl 500 mg PO BID 08/28/17 Neomycin/Polymyxn/Hc [Cortisporin Otic Solution -] 4 drop QID #120 drops Current Medications Acetaminophen (Tylenol -) 650 mg PO Q6H PRN PRN Reason: FEVER Last Admin: 08/28/17 20:30 Dose: 650 mg Alprazolam (Xanax) 1 mg PO ONCE PRN PRN Reason: ANXIETY Last Admin: 08/28/17 14:25 Dose: 1 mg Alprazolam (Xanax) 1 mg PO BID [facility] Last Admin: 08/29/17 09:20 Dose: 1 mg Amoxicillin/Clavulanate Potassium (Augmentin - 875mg Tablet) 1 tab PO BID@0800, 1730 [facility] Last Admin: 08/29/17 09:20 Dose: 1 tab Aspirin (Asa -) 81 mg PO DAILY [facility] Last Admin: 08/29/17 09:20 Dose: 81 mg Enoxaparin Sodium (Lovenox -) 100 mg SQ BID [facility] Last Admin: 08/29/17 12:15 Dose: 100 mg Hydromorphone HCl (Dilaudid Injection -) 1 mg IVPB Q4H PRN PRN Reason: PAIN LEVEL 6-10 Lisinopril (Prinivil) 10 mg PO DAILY [facility] Last Admin: 08/29/17 09:20 Dose: 10 mg Neomycin/Polymyxin/Hydrocortisone (Cortisporin Otic Solution -) 4 drop Q6HPO [facility] Last Admin: 08/29/17 12:15 Dose: 4 drop Oxycodone HCl (Roxicodone -) 10 mg PO Q6H PRN PRN Reason: PAIN LEVEL 7 - 10 Last Admin: 08/29/17 06:38 Dose: 10 mg Sotalol HCl (Betapace -) 80 mg PO BID [facility] Warfarin Sodium (Coumadin -) 7.5 mg PO DAILY@1800 [facility] Vital Signs - 24 hr 08/28/17 08/28/17 08/28/17 14:43 16:15 21:12 Temperature 98.3 F 97.8 F Pulse Rate 84 99 H Pulse Rate [ 88 Apical] Respiratory 14 16 18 Rate Blood Pressure 171/101 143/77 Blood Pressure 162/99 [Left Arm] O2 Sat by Pulse 99 Oximetry (%) 08/29/17 06:00 Temperature 97.8 F Pulse Rate 84 Pulse Rate [ Apical] Respiratory 20 Rate Blood Pressure 141/78 Blood Pressure [Left Arm] O2 Sat by Pulse 97 Oximetry (%) Intake & Output 08/27/17 08/28/17 08/29/17 08/30/17 07:59 07:59 07:59 07:59 Intake Total 640 Balance 640 Weight 249 lb NAD, calm JVD flat, neck supple ctab, nl effort rrr nl s1, s2. no mrg + bs soft nt nd ext without e/c/c + dp/pt, no carotid bruits no jaundice, diaphoresis aaox3 CBC, BMP 08/28/17 14:15 08/28/17 14:15 Laboratory Tests 08/28/17 08/28/17 08/28/17 14:15 14:15 20:30 Total Bilirubin 0.5 D AST 18 D ALT 10 D Alkaline Phosphatase 75 Troponin I < 0.03 0.03 Albumin 3.6 EKG: sr, qtc 505 ms. no ischemic ekg changes. Per report, 07/17/16 Echo (at [facility]): Normal LV size and wall motion. LVEF 60%. Min MR. Mild TR. Per report, 07/18/16 Cardiac CTA: Calcium score = 0, normal coronaries per report, 07/18/16 Cardiac MRI: Mild hypokinesis of basal segments, LVEF 49%. Assessment/Plan 42 yo with h/o pafib/nsvt s/p unsuccesful VT ablation 06/2016 and repeat VT ablation 07/2016 on sotalol, HTN, niddm, anxiety on xanax/depression on prozac, obesity and recent episode of cervical lymphadenitiswho p/w cp. uncontrolled hypertension - In ER bp went up to 208/120. sbp came down to 160's after labetolol 10 mg IV x 1. sbp's trended down to 140's overnight. Started on outpatient po lisinopril (10 mg) this morning. con't to monitor, uptitrate as needed. - Ce's neg x 2. Ekg without acute ischemic changes. echo pending. mgm't of anxiety per pmd/psych. afib/VT s/p VT ablation x 2 - on sotalol for rhythm control, con't. Remains in SR - on Coumadin for AC. Started on lovenox bridge for subtherapeutic INR. No hx of prior cva, no strong indication for bridging. Can d/c lovenox bridge. Prolonged qtc - prozac was held for prolonged qtc, but patient currently with severe depressive sx's. Patient is expected to have some prolongation of qtc on sotalol (allow for prolongations up to 500). Patient currently with borderline increase in qtcon sotalol. Would confirm that magnesium is repleted before stopping prozac. Recommend magnesium check, repletion if needed and repeat EKG. If repeat qtc < 500 ms, ok to con't prozac. - K to 4.0, Mg to 2.0. - check utox - ongoing avoidance of qt prolonging drugs where possible. depression/anxiety - ongoing mgm't per pmd/psych.
[2017-08-29] MEDS: HYDROmorphone HCL CARPU-JECT 2 MG/1 ML DISP.SYRIN IVPB PRN ×3 (14:00→22:44)
[2017-08-29] MEDS: WARFARIN NA 7.5 MG TABLET (FP) PO SCH (17:20)
[2017-08-29 18:32] LABS: ANION GAP 6 (8-16); BLOOD UREA NITROGEN 15 mg/dl (7-18); CALCIUM 8.6 mg/dl (8.4-10.2); CHLORIDE 103 mmol/L (98-107); CO2 24 mmol/L (22-28); CREATININE < 0.8 mg/dl (0.6-1.3); GLUCOSE,RANDOM 257 mg/dl (74-106); MAGNESIUM 1.6 mg/dL (1.8-2.4); POTASSIUM 3.4 mmol/L (3.5-5.1); SODIUM 133 mmol/L (136-145)
[2017-08-29 20:03] LABS: PHENCYCLIDINE,URINE NEGATIVE ng/ml (CUTOFF=25); URINE AMPHETAMINES NEGATIVE ng/ml (CUTOFF=500); URINE BARBITURATES NEGATIVE ng/ml (CUTOFF=200)
[2017-08-29 20:04] LABS: METHADONE, UR NEGATIVE ng/ml (CUTOFF=300)
[2017-08-29 20:08] LABS: COCAINE, UR POSITIVE ng/ml (CUTOFF=300); URINE BENZODIAZEPINES POSITIVE ng/ml (CUTOFF=200)
[2017-08-29 20:09] LABS: OPIATES, URI POSITIVE ng/ml (CUTOFF=300)
[2017-08-29] MEDS ORDERED: MAGNESIUM SULF 50% (8.12 MEQ/2 ML-1 GM VIAL) IVPB ONE (21:33)
[2017-08-29] MEDS: SOTALOL HCL 80 MG TABLET (FP) PO SCH (22:44)
[2017-08-30] MEDS: HYDROmorphone HCL CARPU-JECT 2 MG/1 ML DISP.SYRIN IVPB PRN ×2 (08:00→20:38)
[2017-08-30] MEDS: NEOMYCIN/POLYMYXN/HC OTIC SOLUTION 10 ML BOTTLE AS SCH ×5 (08:00→23:48)
[2017-08-30] MEDS: AMOX TR/POT CLAV 875MG/125MG TABLETS (FP) PO SCH ×2 (08:00→18:30)
[2017-08-30] MEDS: ACETAMINOPHEN 325 MG TABLET (FP) PO PRN (08:00)
[2017-08-30 08:29] LABS: ANION GAP 7 (8-16); BLOOD UREA NITROGEN 15 mg/dl (7-18); CALCIUM 8.7 mg/dl (8.4-10.2); CHLORIDE 100 mmol/L (98-107); CO2 26 mmol/L (22-28); CREATININE 0.6 mg/dl (0.6-1.3); GLUCOSE,RANDOM 221 mg/dl (74-106); POTASSIUM 3.8 mmol/L (3.5-5.1); SODIUM 133 mmol/L (136-145)
[2017-08-30] MEDS: SOTALOL HCL 80 MG TABLET (FP) PO SCH ×2 (10:00→21:40)
--- NOTE | 2017-08-30 10:06 | PN ---
Physical Exam: SUBJECTIVE: Patient seen and examined OBJECTIVE: elevated blood glucose, start on novolog [id number] ordered Vital Signs Period Temp Pulse Resp BP Sys/Cruz Pulse Ox Last 24 Hr 98.3 F-99.0 F 80-83 16-19 125-128/43-72 98-99 GENERAL: The patient is awake, alert, and fully oriented, in no acute distress. HEAD: Normal with no signs of trauma. EYES: PERRL, extraocular movements intact, sclera anicteric, conjunctiva clear. No ptosis. ENT: Ears normal, nares patent, oropharynx clear without exudates, moist mucous membranes. NECK: Trachea midline, full range of motion, supple. LUNGS: Breath sounds equal, clear to auscultation bilaterally, no wheezes, no crackles, no accessory muscle use. HEART: Regular rate and rhythm, S1, S2 without murmur, rub or gallop. ABDOMEN: Soft, nontender, nondistended, normoactive bowel sounds, no guarding, no rebound, no hepatosplenomegaly, no masses. EXTREMITIES: 2+ pulses, warm, well-perfused, no edema. NEUROLOGICAL: Cranial nerves II through XII grossly intact. Normal speech, gait not observed. PSYCH: Normal mood, normal affect. SKIN: Warm, dry, normal turgor, no rashes or lesions noted Laboratory Results - last 24 hr 08/29/17 08/29/17 08/30/17 09:00 17:30 07:10 Sodium 133 L 133 L Potassium 3.4 L 3.8 Chloride 103 100 Carbon Dioxide 24 26 Anion Gap 6 L 7 L BUN 15 D 15 Creatinine < 0.8 0.6 D Random Glucose 257 H 221 H Calcium 8.6 8.7 Magnesium 1.6 L Opiates Screen Positive Methadone Screen Negative Barbiturate Screen Negative Phencyclidine Screen Negative Ur Amphetamines Screen Negative MDMA (Ecstasy) Screen Negative Benzodiazepines Screen Positive Cocaine Screen Positive U Marijuana (THC) Screen Positive Active Medications Generic Name Dose Route Start Last Admin Trade Name Freq PRN Reason Stop Dose Admin Acetaminophen 650 mg 08/28/17 20:09 08/30/17 08:00 Tylenol - PO 650 mg Q6H PRN Administration FEVER Alprazolam 1 mg 08/28/17 13:14 08/28/17 14:25 Xanax PO 1 mg ONCE PRN Administration ANXIETY Alprazolam 1 mg 08/29/17 10:00 08/29/17 21:59 Xanax PO 1 mg BID [facility] Administration Amoxicillin/Clavulanate Potassium 1 tab 08/29/17 08:00 08/30/17 08:00 Augmentin - 875mg Tablet PO 1 tab BID@0800,1730 [facility] Administration Hydromorphone HCl 1 mg 08/29/17 13:11 08/30/17 08:00 Dilaudid Injection - IVPB 1 mg Q4H PRN Administration PAIN LEVEL 6-10 Lisinopril 10 mg 08/29/17 10:00 08/29/17 09:20 Prinivil PO 10 mg DAILY [facility] Administration Neomycin/Polymyxin/Hydrocortisone 4 drop 08/28/17 13:26 08/30/17 08:00 Cortisporin Otic Solution - 4 drop Q6HPO [facility] Administration Oxycodone HCl 10 mg 08/29/17 00:50 08/29/17 06:38 Roxicodone - PO 10 mg Q6H PRN Administration PAIN LEVEL 7 - 10 Sotalol HCl 80 mg 08/29/17 22:00 08/30/17 10:00 Betapace - PO 80 mg BID [facility] Administration Warfarin Sodium 7.5 mg 08/29/17 18:00 08/29/17 17:20 Coumadin - PO 7.5 mg DAILY@1800 [facility] Administration ASSESSMENT/PLAN: Hever is a 42 year old female with a significant past medical history of hypertension, atrial fibrillation (on Coumadin 5mg), depression and anxiety. She presents to the ED with hypertensive urgency, chest pain and left ear pain. Hypertensive urgency, resolved BP controlled On Sotolol 80mg BID Lisinoprin 10mg daily Chest pain, resolved Negative troponins Cardiology following Afib with prolonged OTc INR subtherapeutic, on Lovenox bridge to Coumadin Hold Prozac Depression/anxiety Hold Prozac, on Xanax Outpatient follow up encouraged Hyperglycemia, acute Put on Novolog SS Await hmga1c Left ear pain On Polymicin drops, Augmentin Pain control with Dilaudid ENT consulted FEN tolerating PO Monitor labs low salt diet full code Visit type - Emergency Visit Emergency Visit: Yes ED Registration Date: 08/28/17 Care time: The patient presented to the Emergency Department on the above date and was hospitalized for further evaluation of their emergent condition. - New Patient This patient is new to me today: Yes Date on this admission: 08/30/17 - Critical Care Critical Care patient: No - Discharge Referral Referred to [facility] No
[2017-08-30 10:09] LABS: INR 1.12 (0.82-1.09); PROTHROMBIN TIME (PATIENT) 12.6 SEC (10.2-13.0)
[2017-08-30] MEDS: ENOXAPARIN NA (PORCINE) 100 MG/1 ML DISP.SYRIN SQ SCH ×2 (11:59→21:40)
[2017-08-30] MEDS: LISINOPRIL 10 MG TABLET (FP) PO SCH (12:01)
[2017-08-30] MEDS: ALPRAZolam 1 MG TABLET PO SCH ×2 (12:01→21:39)
[2017-08-30] MEDS: INSULIN SLIDING SCALE (NOVOLOG) 1 VIAL SQ SCH ×3 (12:19→22:36)
[2017-08-30] MEDS: WARFARIN NA 7.5 MG TABLET (FP) PO SCH (18:31)
[2017-08-30] MEDS ORDERED: PT OWN MED DRAWER 7, Y5N ONE (21:38)
[2017-08-31] MEDS: NEOMYCIN/POLYMYXN/HC OTIC SOLUTION 10 ML BOTTLE AS SCH ×4 (06:47→23:59)
[2017-08-31] MEDS: INSULIN SLIDING SCALE (NOVOLOG) 1 VIAL SQ SCH ×4 (06:48→22:00)
[2017-08-31] MEDS: ACETAMINOPHEN 325 MG TABLET (FP) PO PRN ×3 (08:24→21:35)
[2017-08-31] MEDS: oxyCODONE HCL 5 MG TABLET PO PRN ×3 (08:24→21:35)
[2017-08-31] MEDS: AMOX TR/POT CLAV 875MG/125MG TABLETS (FP) PO SCH ×2 (08:25→17:02)
[2017-08-31] MEDS: HYDROmorphone HCL CARPU-JECT 2 MG/1 ML DISP.SYRIN IVPB PRN (08:36)
[2017-08-31 09:37] LABS: ALBUMIN 3.3 g/dl (3.5-5.0); ALK PHOS 69 U/L (32-92); ANION GAP 8 (8-16); BLOOD UREA NITROGEN 17 mg/dl (7-18); CALCIUM 8.8 mg/dl (8.4-10.2); CHLORIDE 102 mmol/L (98-107); CO2 24 mmol/L (22-28); GLUCOSE,RANDOM 211 mg/dl (74-106); POTASSIUM 4.4 mmol/L (3.5-5.1); SGOT/AST 23 U/L (10-42); SGPT/ALT 16 U/L (10-40); SODIUM 134 mmol/L (136-145); TOT PROT 7.1 g/dl (6.4-8.3)
[2017-08-31 09:40] LABS: WHITE BLOOD COUNT 4.4 K/mm3 (4.0-10.8)
[2017-08-31 09:42] LABS: BILIRUBIN,TOTAL < 0.5 mg/dl (0.2-1.0); CREATININE < 0.8 mg/dl (0.6-1.3)
[2017-08-31 09:50] LABS: BASO % 0.9 % (0-2.0); EOS % 1.6 % (0-4.5); HEMATOCRIT 35.6 % (32.4-45.2); HEMOGLOBIN 11.8 GM/dl (10.7-15.3); LYMPH % 50.5 % (8-40); MCH 26.8 pg (25.7-33.7); MCHC 33.1 g/dl (32.0-36.0); MEAN PLT VOLUME 10.8 fl (7.5-11.1); MONO % 6.3 % (3.8-10.2); NEUT % 40.7 % (42.8-82.8); PLATELET COUNT 246 K/MM3 (134-434); RDW 13.2 % (11.6-15.6)
[2017-08-31] MEDS ORDERED: PT OWN MED DRAWER 7, Y5N ONE ×2 (10:10→13:13)
[2017-08-31] MEDS: LISINOPRIL 10 MG TABLET (FP) PO SCH (10:11)
[2017-08-31] MEDS: ALPRAZolam 1 MG TABLET PO SCH ×2 (10:12→21:31)
[2017-08-31] MEDS: SOTALOL HCL 80 MG TABLET (FP) PO SCH ×2 (10:12→21:32)
[2017-08-31] MEDS: ENOXAPARIN NA (PORCINE) 100 MG/1 ML DISP.SYRIN SQ SCH ×2 (10:12→21:31)
--- NOTE | 2017-08-31 11:39 | PN ---
Progress Note, Physician Chief Complaint: No CV complaints No chest pain or dyspnea Left ear pain No Tele History of Present Illness: No events overnight No CV complaints No tele - Current Medication List Current Medications: Active Medications Acetaminophen (Tylenol -) 650 mg PO Q6H PRN PRN Reason: FEVER Last Admin: 08/31/17 08:24 Dose: 650 mg Alprazolam (Xanax) 1 mg PO ONCE PRN PRN Reason: ANXIETY Last Admin: 08/28/17 14:25 Dose: 1 mg Alprazolam (Xanax) 1 mg PO BID [facility] Last Admin: 08/31/17 10:12 Dose: 1 mg Amoxicillin/Clavulanate Potassium (Augmentin - 875mg Tablet) 1 tab PO BID@0800, 1730 [facility] Last Admin: 08/31/17 08:25 Dose: 1 tab Enoxaparin Sodium (Lovenox -) 100 mg SQ BID [facility] Last Admin: 08/31/17 10:12 Dose: 100 mg Hydromorphone HCl (Dilaudid Injection -) 1 mg IVPB Q4H PRN PRN Reason: PAIN LEVEL 6-10 Last Admin: 08/31/17 08:36 Dose: 1 mg Insulin Aspart (Novolog Vial Sliding Scale -) 1 vial SQ [facility]; Protocol Last Admin: 08/31/17 06:48 Dose: 4 unit Lisinopril (Prinivil) 10 mg PO DAILY [facility] Last Admin: 08/31/17 10:11 Dose: 10 mg Neomycin/Polymyxin/Hydrocortisone (Cortisporin Otic Solution -) 4 drop Q6HPO [facility] Last Admin: 08/31/17 06:47 Dose: 4 drop Oxycodone HCl (Roxicodone -) 10 mg PO Q6H PRN PRN Reason: PAIN LEVEL 7 - 10 Last Admin: 08/31/17 08:24 Dose: 10 mg Sotalol HCl (Betapace -) 80 mg PO BID [facility] Last Admin: 08/31/17 10:12 Dose: 80 mg Warfarin Sodium (Coumadin -) 7.5 mg PO DAILY@1800 [facility] Last Admin: 08/30/17 18:31 Dose: 7.5 mg - Objective Vital Signs: Vital Signs Temperature 98.8 F 08/31/17 06:39 Pulse Rate 80 08/31/17 06:39 Respiratory Rate 18 08/31/17 09:00 Blood Pressure 143/81 08/31/17 06:39 O2 Sat by Pulse Oximetry (%) 97 08/31/17 09:00 Constitutional: Yes: No Distress Eyes: Yes: WNL HENT: Yes: WNL Neck: Yes: WNL, Tenderness Cardiovascular: Yes: WNL, Regular Rate and Rhythm Respiratory: Yes: WNL, CTA Bilaterally Gastrointestinal: Yes: WNL Musculoskeletal: Yes: WNL Extremities: Yes: WNL Edema: No Integumentary: Yes: Tattoos Labs: CBC, BMP 08/31/17 06:45 08/31/17 07:00 INR, PTT INR 1.12 (0.82-1.09) 08/30/17 07:10 Assessment/Plan 42 yo with h/o pafib/nsvt s/p unsuccesful VT ablation 06/2016 and repeat VT ablation 07/2016 on sotalol, HTN, niddm, anxiety on xanax/depression on prozac, obesity and recent episode of cervical lymphadenitiswho p/w cp. uncontrolled hypertension - In ER bp went up to 208/120. sbp came down to 160's after labetolol 10 mg IV x 1. sbp's trended down to 140's overnight. Started on outpatient po lisinopril (10 mg) this morning. con't to monitor, uptitrate as needed. - Ce's neg x 2. Ekg without acute ischemic changes. echo pending. mgm't of anxiety per pmd/psych. -08/31: BP much improved on Lisinopril 10mg daily (130-140s). Utox scree (+) Cocaine which may have contributed to her initial hypertensive state. Would continue Lisinopril at 10mg for now. afib/VT s/p VT ablation x 2 - on sotalol for rhythm control, con't. Remains in SR - on Coumadin for AC. Started on lovenox bridge for subtherapeutic INR. No hx of prior cva, no strong indication for bridging. Can d/c lovenox bridge. -08/31: In SR on ECG at 77. INR 1.1 (08/30). Today INR still pending. Would continue Enoxaparin bridge dosing. Warfarin 7.5mg tonight. Continue Sotalol at current dose. Prolonged qtc - prozac was held for prolonged qtc, but patient currently with severe depressive sx's. Patient is expected to have some prolongation of qtc on sotalol (allow for prolongations up to 500). Patient currently with borderline increase in qtcon sotalol. Would confirm that magnesium is repleted before stopping prozac. Recommend magnesium check, repletion if needed and repeat EKG. If repeat qtc < 500 ms, ok to con't prozac. - K to 4.0, Mg to 2.0. - check utox - ongoing avoidance of qt prolonging drugs where possible. -08/31: ECG today shows QTc 500msec. Known effect of Sotalol. Would continue to hold Prozac. depression/anxiety - ongoing mgm't per pmd/psych.
[2017-08-31 11:45] LABS: INR 1.22 (0.82-1.09); PROTHROMBIN TIME (PATIENT) 13.6 SEC (10.2-13.0)
--- NOTE | 2017-08-31 12:07 | PN ---
Physical Exam: SUBJECTIVE: Patient seen and examined,c/o left ear pain with drainage,denies tinnitus, [place],dizziness,sore throat, dysphagia,cp,sob, palpitations,abdominal pain, N/V/D or urinary symptoms. OBJECTIVE: Vital Signs Period Temp Pulse Resp BP Sys/Cruz Pulse Ox Last 24 Hr 98.0 F-98.8 F 76-80 17-18 133-143/70-81 96-97 GENERAL: The patient is awake, alert, and fully oriented, in no acute distress. HEAD: Normal with no signs of trauma. EYES: PERRL, extraocular movements intact, sclera anicteric, conjunctiva clear. No ptosis. ENT: Ears- LT + tenderness,inner ear no redness, no drainage noted, nares patent , oropharynx clear without exudates, moist mucous membranes. NECK: Trachea midline, full range of motion, supple. LUNGS: Breath sounds equal, clear to auscultation bilaterally, no wheezes, no crackles, no accessory muscle use. HEART: Regular rate and rhythm, S1, S2 without murmur, rub or gallop. ABDOMEN: Soft, nontender, nondistended, normoactive bowel sounds, no guarding, no rebound, no hepatosplenomegaly, no masses. EXTREMITIES: 2+ pulses, warm, well-perfused, no edema. NEUROLOGICAL: Cranial nerves II through XII grossly intact. Normal speech, gait not observed. PSYCH: Normal mood, normal affect. SKIN: Warm, dry, normal turgor, no rashes or lesions noted Laboratory Results - last 24 hr 08/30/17 08/30/17 08/31/17 11:56 22:32 06:24 WBC RBC Hgb Hct MCV MCH MCHC RDW Plt Count MPV Neutrophils % Lymphocytes % Monocytes % Eosinophils % Basophils % PT with INR INR Sodium Potassium Chloride Carbon Dioxide Anion Gap BUN Creatinine Creat Clearance w eGFR POC Glucometer 181 246 231 Random Glucose Calcium Total Bilirubin AST ALT Alkaline Phosphatase Total Protein Albumin 08/31/17 08/31/17 08/31/17 06:45 06:45 07:00 WBC 4.4 D RBC 4.40 Hgb 11.8 Hct 35.6 MCV 81.0 MCH 26.8 MCHC 33.1 RDW 13.2 Plt Count 246 MPV 10.8 Neutrophils % 40.7 L Lymphocytes % 50.5 H Monocytes % 6.3 Eosinophils % 1.6 Basophils % 0.9 PT with INR 13.6 H INR 1.22 Sodium 134 L Potassium 4.4 Chloride 102 Carbon Dioxide 24 Anion Gap 8 BUN 17 Creatinine < 0.8 D Creat Clearance w eGFR > 60 POC Glucometer Random Glucose 211 H Calcium 8.8 Total Bilirubin < 0.5 AST 23 D ALT 16 D Alkaline Phosphatase 69 Total Protein 7.1 Albumin 3.3 L 08/31/17 11:32 WBC RBC Hgb Hct MCV MCH MCHC RDW Plt Count MPV Neutrophils % Lymphocytes % Monocytes % Eosinophils % Basophils % PT with INR INR Sodium Potassium Chloride Carbon Dioxide Anion Gap BUN Creatinine Creat Clearance w eGFR POC Glucometer 134 Random Glucose Calcium Total Bilirubin AST ALT Alkaline Phosphatase Total Protein Albumin Active Medications Generic Name Dose Route Start Last Admin Trade Name Freq PRN Reason Stop Dose Admin Acetaminophen 650 mg 08/28/17 20:09 08/31/17 08:24 Tylenol - PO 650 mg Q6H PRN Administration FEVER Alprazolam 1 mg 08/28/17 13:14 08/28/17 14:25 Xanax PO 1 mg ONCE PRN Administration ANXIETY Alprazolam 1 mg 08/29/17 10:00 08/31/17 10:12 Xanax PO 1 mg BID [facility] Administration Amoxicillin/Clavulanate Potassium 1 tab 08/29/17 08:00 08/31/17 08:25 Augmentin - 875mg Tablet PO 1 tab BID@0800,1730 [facility] Administration Enoxaparin Sodium 100 mg 08/30/17 10:30 08/31/17 10:12 Lovenox - SQ 100 mg BID [facility] Administration Insulin Aspart 1 vial 08/30/17 11:00 08/31/17 11:40 Novolog Vial Sliding Scale - SQ Not Given ACHS [facility] Protocol Lisinopril 10 mg 08/29/17 10:00 08/31/17 10:11 Prinivil PO 10 mg DAILY [facility] Administration Neomycin/Polymyxin/Hydrocortisone 4 drop 08/28/17 13:26 08/31/17 06:47 Cortisporin Otic Solution - 4 drop Q6HPO [facility]RETEL Administration Oxycodone HCl 10 mg 08/29/17 00:50 08/31/17 08:24 Roxicodone - PO 10 mg Q6H PRN Administration PAIN LEVEL 7 - 10 Sotalol HCl 80 mg 08/29/17 22:00 08/31/17 10:12 Betapace - PO 80 mg BID [facility] Administration Warfarin Sodium 7.5 mg 08/29/17 18:00 08/30/17 18:31 Coumadin - PO 7.5 mg DAILY@1800 [facility] Administration ASSESSMENT/PLAN: Patent is a 42 year old female with a significant past medical history of hypertension, atrial fibrillation (on Coumadin 5mg), depression and anxiety. She presented to the ED with hypertensive urgency, chest pain and left ear pain. *Hypertensive urgency-BP controlled will cont on Sotolol and Lisinopril will monitor BP closely *Chest pain, resolved, likely cocaine induced Utox positive Negative troponins Cardiology following EKG - OTC elevated Echo reviewed f/u on EKG in am mg level 1.8,will keep it >2,K 4 * Hx of A-Fib- now SR INR subtherapeutic,will cont on Lovenox bridge to Coumadin Holding off Prozac will f/u on INR *Depression/anxiety Hold Prozac in view of prolonged QTc,on Xanax Outpatient follow up encouraged *Hyperglycemia, will check HgbAlc FS AC&HDS Novolog SS *Left ear pain,reported drainage,? infection -inner ear no redness or drainage noted will cont on Polymycin drops, Augmentin Pain control, will hold off on IV Dilaudid in view of + tox ENT spoke with ,unable to see pt inpt ,rec out pt f/u afebrile with no leukocytosis *FEN tolerating PO Monitor labs low salt diet Visit type - Emergency Visit Emergency Visit: Yes ED Registration Date: 08/28/17 Care time: The patient presented to the Emergency Department on the above date and was hospitalized for further evaluation of their emergent condition. - New Patient This patient is new to me today: Yes Date on this admission: 08/31/17 - Critical Care Critical Care patient: No
[2017-08-31] MEDS ORDERED: MAGNESIUM 1GM/D5W 100ML - 100 ML IVPB IVPB ONE (12:54)
[2017-08-31] MEDS ORDERED: INSULIN (NOVOLOG) ASPART 100 UNITS/ML 10ML VIAL ONE ×2 (16:55→23:25)
[2017-08-31] MEDS: WARFARIN NA 7.5 MG TABLET (FP) PO SCH (17:02)
[2017-09-01] MEDS: NEOMYCIN/POLYMYXN/HC OTIC SOLUTION 10 ML BOTTLE AS SCH ×3 (06:20→19:12)
[2017-09-01] MEDS ORDERED: INSULIN (NOVOLOG) ASPART 100 UNITS/ML 10ML VIAL ONE ×2 (06:51→22:17)
[2017-09-01] MEDS: INSULIN SLIDING SCALE (NOVOLOG) 1 VIAL SQ SCH ×3 (06:52→22:04)
--- NOTE | 2017-09-01 08:39 | PN ---
Progress Note, Physician Chief Complaint: cp History of Present Illness: no cp (admits she feels chest pressure with anxiety attack) no sob, palpitations, presyncope/syncope - Current Medication List Current Medications: Active Medications Acetaminophen (Tylenol -) 650 mg PO Q6H PRN PRN Reason: FEVER Last Admin: 08/31/17 21:35 Dose: 650 mg Alprazolam (Xanax) 1 mg PO ONCE PRN PRN Reason: ANXIETY Last Admin: 08/28/17 14:25 Dose: 1 mg Alprazolam (Xanax) 1 mg PO BID [facility] Last Admin: 08/31/17 21:31 Dose: 1 mg Amoxicillin/Clavulanate Potassium (Augmentin - 875mg Tablet) 1 tab PO BID@0800, 1730 [facility] Last Admin: 08/31/17 17:02 Dose: 1 tab Enoxaparin Sodium (Lovenox -) 100 mg SQ BID [facility] Last Admin: 08/31/17 21:31 Dose: 100 mg Insulin Aspart (Novolog Vial Sliding Scale -) 1 vial SQ [facility]; Protocol Last Admin: 09/01/17 06:52 Dose: 2 unit Lisinopril (Prinivil) 10 mg PO DAILY [facility] Last Admin: 08/31/17 10:11 Dose: 10 mg Neomycin/Polymyxin/Hydrocortisone (Cortisporin Otic Solution -) 4 drop Q6HPO [facility] Last Admin: 09/01/17 06:20 Dose: 4 drop Sotalol HCl (Betapace -) 80 mg PO BID [facility] Last Admin: 08/31/17 21:32 Dose: 80 mg Warfarin Sodium (Coumadin -) 7.5 mg PO DAILY@1800 [facility] Last Admin: 08/31/17 17:02 Dose: 7.5 mg - Objective Vital Signs: Vital Signs Temperature 98.2 F 09/01/17 06:48 Pulse Rate 72 09/01/17 06:48 Respiratory Rate 18 09/01/17 06:48 Blood Pressure 145/87 09/01/17 06:48 O2 Sat by Pulse Oximetry (%) 99 08/31/17 21:00 Constitutional: Yes: No Distress, Calm Eyes: No: Sclera Icterus HENT: No: Nasal Congestion Cardiovascular: Yes: Regular Rate and Rhythm, S1, S2, Other (PMI non diplaced). No: Gallop, Murmur Respiratory: Yes: CTA Bilaterally. No: Accessory Muscle Use, Rales, Wheezes Gastrointestinal: Yes: Normal Bowel Sounds, Soft. No: Tenderness Musculoskeletal: Yes: Other (No kyphosis) Extremities: No: Cold Edema: No Integumentary: No: Jaundice Neurological: Yes: Alert, Oriented (x3) Psychiatric: No: Agitated Labs: CBC, BMP 08/31/17 06:45 08/31/17 07:00 INR, PTT INR 1.22 (0.82-1.09) 08/31/17 06:45 Assessment/Plan Echo 09/15: nl LVSF, mlid LVH. nl RV. mild LAE. mild MR/TR. ECG 08/31: NSR, normal axis. QTc (Gitig calculation) 489 msec. 42 yo with h/o pafib/nsvt s/p unsuccesful VT ablation 06/2016 and repeat VT ablation 07/2016 on sotalol, HTN, niddm, anxiety on xanax/depression on prozac, obesity and recent episode of cervical lymphadenitiswho p/w cp. HTN s/p hypertensive urgency - bp to 208/120 in ER--? cocaine +/- anxiety contributing - BP improved rapidly here - well controlled at present. - cont home lisinopril chest pain - no acute ischemic ecg changes, enzymes neg x 2 - ? sec to HTN on DOA, ? depression/anxiety sx - no signs of active ischemic process afib/? VT s/p ablation x 2 - follows with EP at [facility] (dr marcial gardner) - on sotalol for rhythm control. QTc off SSRI is <500 by my calculation-- continue sotalol - continue warfarin goal INR 2-3. consider NOAC if expense not an issue, if will improve pt adherence (INR low here) - bridging Prolonged qtc - prozac was held for prolonged qtc, but patient currently with severe depressive sx's. Patient is expected to have some prolongation of qtc on sotalol (allow for prolongations up to 500). Patient currently with borderline increase in qtcon sotalol. Would confirm that magnesium is repleted before stopping prozac. Recommend magnesium check, repletion if needed and repeat EKG. If repeat qtc < 500 ms, ok to con't prozac. - K to 4.0, Mg to 2.0. - check utox - ongoing avoidance of qt prolonging drugs where possible. depression/anxiety - pt with severe depression presently, admitting to suicidal ideology--psych consult pending, may need hospitalization - SSRI held for QT prolonging effects--pt started on this 07/16 and states she is not certain it was helping her mood - if mood can be stabilized without QT prolonging drugs, that would be ideal. if psych feels pt needs to resume SSRI or other potentially QT-prolonging meds, then will need to discuss with EP prior drugs tried, and whether can either stop sotalol or change to flecainide (if hasn't previously failed this drug)
--- NOTE | 2017-09-01 08:54 | PN ---
Physical Exam: SUBJECTIVE: Patient seen and examined, Patient reports feeling depressed, she admits to using cocaine, xanax and marijuana to try to kill herself. Patient reports she doesn't want to live, she does not have a plan, however, she self- discontinued her medications "weeks" ago, because she has "given up". OBJECTIVE: Patient is a 42y/o female with a past medical history of afib (s/p ablation x 2, 07/15 and 01/14), hypertension, DM, Depression, and obesity. Patient was admitted from the emergency department for hypertensive urgency Vital Signs Period Temp Pulse Resp BP Sys/Cruz Pulse Ox Last 24 Hr 97.5 F-98.2 F 72-78 18-18 120-145/68-87 97-99 GENERAL: The patient is awake, alert, and fully oriented,agitated, tearful. HEAD: Normal with no signs of trauma. EYES: PERRL, extraocular movements intact, sclera anicteric, conjunctiva clear. No ptosis. ENT: Ears normal, nares patent, oropharynx clear without exudates, moist mucous membranes. NECK: Trachea midline, full range of motion, supple. LUNGS: Breath sounds equal, clear to auscultation bilaterally, no wheezes, no crackles, no accessory muscle use. HEART: Regular rate and rhythm, S1, S2 without murmur, rub or gallop. ABDOMEN: Soft, nontender, nondistended, normoactive bowel sounds, no guarding, no rebound, no hepatosplenomegaly, no masses. EXTREMITIES: 2+ pulses, warm, well-perfused, no edema. NEUROLOGICAL: Cranial nerves II through XII grossly intact. Normal speech, gait not observed. PSYCH: Normal mood, normal affect. SKIN: Warm, dry, normal turgor, no rashes or lesions noted Laboratory Results - last 24 hr 08/31/17 08/31/17 08/31/17 06:45 06:45 07:00 WBC 4.4 D RBC 4.40 Hgb 11.8 Hct 35.6 MCV 81.0 MCH 26.8 MCHC 33.1 RDW 13.2 Plt Count 246 MPV 10.8 Neutrophils % 40.7 L Lymphocytes % 50.5 H Monocytes % 6.3 Eosinophils % 1.6 Basophils % 0.9 PT with INR 13.6 H INR 1.22 Sodium 134 L Potassium 4.4 Chloride 102 Carbon Dioxide 24 Anion Gap 8 BUN 17 Creatinine < 0.8 D Creat Clearance w eGFR > 60 POC Glucometer Random Glucose 211 H Calcium 8.8 Total Bilirubin < 0.5 AST 23 D ALT 16 D Alkaline Phosphatase 69 Total Protein 7.1 Albumin 3.3 L 08/31/17 08/31/17 08/31/17 11:32 16:51 21:39 WBC RBC Hgb Hct MCV MCH MCHC RDW Plt Count MPV Neutrophils % Lymphocytes % Monocytes % Eosinophils % Basophils % PT with INR INR Sodium Potassium Chloride Carbon Dioxide Anion Gap BUN Creatinine Creat Clearance w eGFR POC Glucometer 134 210 156 Random Glucose Calcium Total Bilirubin AST ALT Alkaline Phosphatase Total Protein Albumin 09/01/17 06:19 WBC RBC Hgb Hct MCV MCH MCHC RDW Plt Count MPV Neutrophils % Lymphocytes % Monocytes % Eosinophils % Basophils % PT with INR INR Sodium Potassium Chloride Carbon Dioxide Anion Gap BUN Creatinine Creat Clearance w eGFR POC Glucometer 174 Random Glucose Calcium Total Bilirubin AST ALT Alkaline Phosphatase Total Protein Albumin Laboratory Tests 08/29/17 17:30 Opiates Screen Positive Methadone Screen Negative Barbiturate Screen Negative Phencyclidine Screen Negative Ur Amphetamines Screen Negative MDMA (Ecstasy) Screen Negative Benzodiazepines Screen Positive Cocaine Screen Positive U Marijuana (THC) Screen Positive Active Medications Generic Name Dose Route Start Last Admin Trade Name Elle PRN Reason Stop Dose Admin Acetaminophen 650 mg 08/28/17 20:09 08/31/17 21:35 Tylenol - PO 650 mg Q6H PRN Administration FEVER Alprazolam 1 mg 08/28/17 13:14 08/28/17 14:25 Xanax PO 1 mg ONCE PRN Administration ANXIETY Alprazolam 1 mg 08/29/17 10:00 08/31/17 21:31 Xanax PO 1 mg BID [facility] Administration Amoxicillin/Clavulanate Potassium 1 tab 08/29/17 08:00 08/31/17 17:02 Augmentin - 875mg Tablet PO 1 tab BID@0800,1730 [facility] Administration Enoxaparin Sodium 100 mg 08/30/17 10:30 08/31/17 21:31 Lovenox - SQ 100 mg BID [facility] Administration Insulin Aspart 1 vial 08/30/17 11:00 09/01/17 06:52 Novolog Vial Sliding Scale - SQ 2 unit ACHS [facility] Administration Protocol Lisinopril 10 mg 08/29/17 10:00 08/31/17 10:11 Prinivil PO 10 mg DAILY [facility] Administration Neomycin/Polymyxin/Hydrocortisone 4 drop 08/28/17 13:26 09/01/17 06:20 Cortisporin Otic Solution - 4 drop Q6HPO [facility] Administration Sotalol HCl 80 mg 08/29/17 22:00 08/31/17 21:32 Betapace - PO 80 mg BID [facility] Administration Warfarin Sodium 7.5 mg 08/29/17 18:00 08/31/17 17:02 Coumadin - PO 7.5 mg DAILY@1800 [facility] Administration EKG: nsr prolonged QTC ASSESSMENT/PLAN: 1) psych depression anxiety suicidal ideation - patient placed on 1:1 observation, case discussed with Dr Rosario (psychiatry) concern for suicidal ideation, patient will be evaluated by psychiatry today - continue to hold prozac due to prolonged QTC 2) cardiovascular atrial fibrillation - ekg nsr, continue sotalol - inr is subtherepeutic, continue lovenox with bridge to coumadin, pending am labs - cardiology consulted and following hypertension - continue lisinopril - b/p at goal 3) endo DM - continue fingersticks achs with regular insulin coverage f/e/n - diabetic DASH diet - replete lytes prn PPX - lovenox with coumadin bridge - pepcid dispo:pt requires inpatient admission Visit type - Emergency Visit Emergency Visit: Yes ED Registration Date: 08/28/17 Care time: The patient presented to the Emergency Department on the above date and was hospitalized for further evaluation of their emergent condition. - New Patient This patient is new to me today: Yes Date on this admission: 09/01/17 - Critical Care Critical Care patient: No - Discharge Referral Referred to [facility] Med [facility].C.: Yes Physician Referral: Aj Hagen MD (Int Med)
[2017-09-01] MEDS ORDERED: ACETAMINOPHEN/CAFFEINE/BUTALBITAL 1 TAB PO ONE (08:55)
[2017-09-01] MEDS ORDERED: PT OWN MED DRAWER 7, Y5N ONE (09:17)
[2017-09-01] MEDS: AMOX TR/POT CLAV 875MG/125MG TABLETS (FP) PO SCH ×2 (09:58→17:30)
[2017-09-01] MEDS: LISINOPRIL 10 MG TABLET (FP) PO SCH (10:19)
[2017-09-01] MEDS: ENOXAPARIN NA (PORCINE) 100 MG/1 ML DISP.SYRIN SQ SCH ×2 (10:20→22:05)
[2017-09-01] MEDS: SOTALOL HCL 80 MG TABLET (FP) PO SCH ×2 (10:20→22:09)
[2017-09-01] MEDS: ALPRAZolam 1 MG TABLET PO SCH ×2 (10:20→22:09)
[2017-09-01] MEDS ORDERED: ONDANSETRON *ODT* 4 MG TABLET SL ONE (11:00)
[2017-09-01] MEDS: LACTOBACILLUS ACIDOPHILUS 1 TABLET PO SCH (13:00)
[2017-09-01 14:37] LABS: INR 1.81 (0.82-1.09)
[2017-09-01] MEDS ORDERED: MAGNESIUM OXIDE 400 MG TABLET (FP) PO ONE (15:03)
--- NOTE | 2017-09-01 19:00 | CON.PSY ---
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 she also reported that she was feeling Suicidal.I dont want to kill myself< i have abeautiful Grand Daughter fawn cclose family> They put lot of prrssure on me. Patient denies any suicidal plans> She never tried to kill hewrselg She made herself a drug Co[place] to relieve anxiety. Symptoms: reports: Depressed Mood, Anxiety - Previous Psychiatric Treatment Outpatient: None, Less than 6 mos ago Inpatient: None - Previous Substance Abuse Treatment Outpatient: None Inpatient: None - Reason for Previous Treatment Reason for Previous Treatment: Anxiety or Panic Disorder - Current Medications Current Medications: Active Medications Acetaminophen (Tylenol -) 650 mg PO Q6H PRN PRN Reason: FEVER Last Admin: 08/31/17 21:35 Dose: 650 mg Alprazolam (Xanax) 1 mg PO ONCE PRN PRN Reason: ANXIETY Last Admin: 08/28/17 14:25 Dose: 1 mg Alprazolam (Xanax) 1 mg PO BID [facility] Last Admin: 09/01/17 10:20 Dose: 1 mg Amoxicillin/Clavulanate Potassium (Augmentin - 875mg Tablet) 1 tab PO BID@0800, 1730 [facility] Last Admin: 09/01/17 17:30 Dose: 1 tab Enoxaparin Sodium (Lovenox -) 100 mg SQ BID [facility] Last Admin: 09/01/17 10:20 Dose: 100 mg Insulin Aspart (Novolog Vial Sliding Scale -) 1 vial SQ [facility]; Protocol Last Admin: 09/01/17 06:52 Dose: 2 unit Lactobacillus Acidophilus (Bacid -) 1 tab PO DAILY [facility] Last Admin: 09/01/17 13:00 Dose: 1 tab Lisinopril (Prinivil) 10 mg PO DAILY [facility] Last Admin: 09/01/17 10:19 Dose: 10 mg Magnesium Oxide (Mag-Ox -) 400 mg PO BID [facility] Neomycin/Polymyxin/Hydrocortisone (Cortisporin Otic Solution -) 4 drop Q6HPO [facility] Last Admin: 09/01/17 12:18 Dose: 4 drop Sotalol HCl (Betapace -) 80 mg PO BID [facility] Last Admin: 09/01/17 10:20 Dose: 80 mg Warfarin Sodium (Coumadin -) 7.5 mg PO DAILY@1800 [facility] Last Admin: 08/31/17 17:02 Dose: 7.5 mg - Allergies Allergies: Allergies Allergy/AdvReac Type Severity Reaction Status Date / Time No Known Allergies Allergy Verified 08/28/17 10:23 - Current Living Status Usual Living Arrangement: Alone - Current Mental Status Evaluation Appearance: Well Groomed Attitude: Cooperative - Affect Affect: Constrictive Appropriateness: Appropriate to Content - Mood Mood: Anxious - Speech/Language Expressive: Coherent - Psychomotor Activity Psychomotor Activity: Slowed - Thought Process Thought Process: Intact - Thought Content Hallucinations: Absent Delusions: Absent - Self Perception Self Perception: No Impairment - Cognition Attention: Alert Orientation: Time Memory, Immediate Recall: Intact Memory, Short Term: 3/3 Memory, Remote with Promptin/3 - Concentration Serial Sevens Intact: Yes Simple Calculations Intact: Yes - Abstraction Proverb Interpretation: Intact Judgement: Minimally Impaired - Insight Insight: Intact - Impulse Control Impulse Control: Minimally Impaired - Suicidal Ideation Suicidal Ideation: No - Homicidal Ideation Homicidal Ideation: No Assessment/Plan 1) D/c 1:1 2) Discharge patient when medically clear. 3) Continue with Xanax., Dr. Hagen has been prescribing. 4) Patient will seek OP [facility] in [facility].
[2017-09-01] MEDS: WARFARIN NA 7.5 MG TABLET (FP) PO SCH (19:12)
[2017-09-01] MEDS: MAGNESIUM OXIDE 400 MG TABLET (FP) PO SCH (22:09)
[2017-09-02] MEDS: INSULIN SLIDING SCALE (NOVOLOG) 1 VIAL SQ SCH (06:16)
[2017-09-02] MEDS: NEOMYCIN/POLYMYXN/HC OTIC SOLUTION 10 ML BOTTLE AS SCH ×2 (06:18)
[2017-09-02 06:48] VITALS: BP 132/74; PULSE 75; TEMP 98.2
[2017-09-02] MEDS: AMOX TR/POT CLAV 875MG/125MG TABLETS (FP) PO SCH (08:00)
[2017-09-02 09:05] VITALS: BMI 44.4
[2017-09-02 09:40] LABS: INR 2.44 (0.82-1.09); PROTHROMBIN TIME (PATIENT) 26.9 SEC (10.2-13.0)
[2017-09-02] MEDS: ALPRAZolam 1 MG TABLET PO SCH (09:53)
[2017-09-02] MEDS: LISINOPRIL 10 MG TABLET (FP) PO SCH (09:53)
[2017-09-02] MEDS: MAGNESIUM OXIDE 400 MG TABLET (FP) PO SCH (09:53)
[2017-09-02] MEDS: LACTOBACILLUS ACIDOPHILUS 1 TABLET PO SCH (09:54)
[2017-09-02] MEDS: SOTALOL HCL 80 MG TABLET (FP) PO SCH (09:54)
[2017-09-02] MEDS: ENOXAPARIN NA (PORCINE) 100 MG/1 ML DISP.SYRIN SQ SCH (09:54)
--- NOTE | 2017-09-02 11:14 | DS ---
Physical Exam: SUBJECTIVE: Patient seen and examined, patient reports feeling much improved denies any suicidal or homicidal ideation, patient wants to go home. OBJECTIVE:This is a 42 y/o HTN, Afib (on Coumadin), Anxiety. Who presents to the ED with Elevated BP, Chest Pain, Left ear pain, Depression sent in from Urgent Care. 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 Recently treated for L- lympadenitis, Amoxicillin for 2 weeks. Patient reports taking the full course and noted L-ear pain, fullness and fluid discharge today. Patient reports taking her regular scheduled meds, and attributed her elevated BP and CP- now resolved, to stress and severe ear pain. Patient endorses that she takes her medications daily. Patient reports feeling depressed and lonely, she indicated that she lives alone and has only a few friends. Patient denies suicidal or homicidal ideation at present. Patient is currently not receiving psychiatric services. ER course was notable for: (1) Hypertensive Urgency: BP 208/120- 171/101 (2) Trop I 0.03 (3) INR 1.08 Vital Signs Period Temp Pulse Resp BP Sys/Cruz Pulse Ox Last 24 Hr 98.0 F-98.2 F 72-75 18-18 123-132/69-74 97-97 PHYSICAL EXAM GENERAL: The patient is awake, alert, and fully oriented, in no acute distress. HEAD: Normal with no signs of trauma. EYES: PERRL, extraocular movements intact, sclera anicteric, conjunctiva clear. ENT:left ear, erythema noted to the ear canal and effusion noted behind tympanic membrane, nares patent, oropharynx clear without exudates, moist mucous membranes. NECK: Trachea midline, full range of motion, supple. LUNGS: Breath sounds equal, clear to auscultation bilaterally, no wheezes, no crackles, no accessory muscle use. HEART: Regular rate and rhythm, S1, S2 without murmur, rub or gallop. ABDOMEN: Soft, nontender, nondistended, normoactive bowel sounds, no guarding, no rebound, no hepatosplenomegaly, no masses. EXTREMITIES: 2+ pulses, warm, well-perfused, no edema. NEUROLOGICAL: Cranial nerves II through XII grossly intact. Normal speech, gait not observed. PSYCH: Normal mood, normal affect. SKIN: Warm, dry, normal turgor, no rashes or lesions noted. LABS Laboratory Results - last 24 hr 09/01/17 09/01/17 09/01/17 13:00 13:00 19:03 PT with INR 20.0 H INR 1.81 H POC Glucometer 175 Magnesium 1.7 L 09/01/17 09/02/17 09/02/17 22:02 05:34 09:20 PT with INR 26.9 H INR 2.44 H POC Glucometer 200 178 Magnesium Microbiology 08/30/17 14:17 Urine - Urine Clean Catch Urine Culture - Final HOSPITAL COURSE: 1)psych depression and anxiety -Prozac held secondary to prolonged QTC. Dr Rosario (psychiatry) consulted, patient clear for discharge by psychiatry, patient has established follow-up at the for psychotherapy. 2) cardiovascular atrial fibrillation - ekg nsr, continue sotalol -INR was noted to be subtherapeutic upon admission, patient was started on Lovenox bridged to Coumadin. - cardiology consulted and following hypertension - continue lisinopril - b/p at goal 3) endo DM - continue fingersticks achs with regular insulin coverage PLAN - discharge home with outpatient follow-up with psychiatry in [place]. 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 HAGEN ON FRIDAY, FOR A REPEAT INR - iF ANY NEW OR PERSISTENT SYMPTOMS DEVELOP PLEASE RETURN TO EMERGENCY DEPARTMENT Referrals: Rashid Donovan MD [Staff Physician] - Aj Hagen MD [Primary Care Provider] - 09/05/17 Sumanth Ellis MD [Staff Physician] - 2 Weeks - Home Medications Comprehensive Discharge Medication List: Ambulatory Orders Warfarin Sodium 5 mg PO HS tablet 07/30/16 Lisinopril 10 mg PO DAILY tablet 12/06/16 Sotalol HCl [Sotalol] 80 mg PO BID tablet 12/06/16 Alprazolam [Xanax] 1 mg PO BID 04/30/17 Amoxicillin/Potassium Clav [Augmentin 875-125 Tablet] 1 each PO BID 7 Days #14 tablet 08/28/17 Fluoxetine HCl [Prozac] 10 mg PO DAILY 08/28/17 Metformin HCl 500 mg PO BID 08/28/17 Neomycin/Polymyxn/Hc [Cortisporin Otic Solution -] 4 drop QID #120 drops - Discharge Referral Referred to [facility] Yes Physician Referral: Aj Hagen MD (Int Med)
--- NOTE | 2017-09-02 13:29 | EKG ---
Test Reason : Blood Pressure : / mmHG Vent. Rate : 077 BPM Atrial Rate : 077 BPM P-R Int : 162 ms QRS Dur : 074 ms QT Int : 442 ms P-R-T Axes : 038 052 070 degrees QTc Int : 500 ms NORMAL SINUS RHYTHM ANTERIOR INFARCT , AGE UNDETERMINED PROLONGED QT ABNORMAL ECG WHEN COMPARED WITH ECG OF 28-AUG-2017 10:37, ANTERIOR INFARCT IS NOW PRESENT Confirmed by MD HERON, MARIA ANTONIA ([id number]) on 09/02/2017 1:28:35 PM Referred By: Confirmed By:MARIA ANTONIA SHELBY MD
== END 2017-09-02 12:15 | disposition home or self-care (01) ==
LOC: FER 10:15 → SUPCPDRO 10:15 → FM/S 15:02
PROVIDERS: ADMIT Internal Medicine; ATTEND Nurse Practitioner Family
PROC: 3E033NZ Introduction of Analgesics, Hypnotics, Sedatives into Peripheral Vein, Percutaneous Approach (ICD-10-PCS; principal; 2017-08-28)
PROC: 3E033GC Introduction of Other Therapeutic Substance into Peripheral Vein, Percutaneous Approach (ICD-10-PCS; 2017-08-28)
PROC: 3E013VG Introduction of Insulin into Subcutaneous Tissue, Percutaneous Approach (ICD-10-PCS; 2017-08-28)
PROC: 3E013GC Introduction of Other Therapeutic Substance into Subcutaneous Tissue, Percutaneous Approach (ICD-10-PCS; 2017-08-28)
DX: I16.0 Hypertensive urgency (principal); H60.502 Unspecified acute noninfective otitis externa, left ear; H66.92 Otitis media, unspecified, left ear; I10 Essential (primary) hypertension; I48.0 Paroxysmal atrial fibrillation; F41.9 Anxiety disorder, unspecified; F32.9 Major depressive disorder, single episode, unspecified; E66.9 Obesity, unspecified; E11.65 Type 2 diabetes mellitus with hyperglycemia; R07.9 Chest pain, unspecified; I45.81 Long QT syndrome; Z68.41 Body mass index [BMI] 40.0-44.9, adult; Z79.01 Long term (current) use of anticoagulants; Z79.84 Long term (current) use of oral hypoglycemic drugs
CPT/HCPCS: 36415; 71046-TC-FY; 80048; 80053; 80307; 81003; 81015; 82962; 83036; 83735; 84484; 84703; 85025; 85610; 87086; 93005; 93306-TC; 99284-25; G0378; Q0162

== ENCOUNTER 2017-09-10 23:21 | Observation (INO) | payer OTHER ==
--- NOTE | 2017-09-10 23:49 | PDOC ---
History of Present Illness - General Chief Complaint: Ear Problem Stated Complaint: R EAR PAIN Time Seen by Provider: 09/10/17 23:22 History Source: Patient Exam Limitations: No Limitations - History of Present Illness Initial Comments: 09/11/17 00:03 This is a 42-year-old female who comes in complaining of right ear pain and swelling of the area behind the ear and the mastoid process. Patient had a left otitis externa approximately 2 weeks ago for which she was admitted for 2 days for IV antibiotics and then discharged on Augmentin. Patient also taking otitis externa Corticosporin drops. Patient said she was getting better and then symptoms have nearly resolved in the left ear there is still some residual clogging of the ear but otherwise it is improved. Patient now has developed over the last 24 hours a low-grade fever and severe pain in the area of the right ear and the right mastoid process and posterior auricular area. Patient is a type II diabetic. PAST MEDICAL HISTORY: no significant history PAST SURGICAL HISTORY: no significant history FAMILY HISTORY: no pertinant history SOCIAL HISTORY: Pt lives with family and is employed. MEDICATIONS: reviewed ALLERGIES: As per nursing notes Review of Systems General: No fevers or chills, no weakness, no weight loss HEENT: No change in vision. No sore throat,. No ear pain CardioVascular: No chest pain or shortness of breath Respiratory:No cough, or wheezing. Gastrointestinal: no nausea, vomitting, diarrhea or constipation, No rectal bleeding Genitourinary: No dysuria, hematuria, or frequency Musculoskeletal: No joint or muscle pain or swelling Neurologic: No headache, vertigo, dizziness or loss of consciousness Psychiatric: nor depression Skin: No rashes or easy bruising Endocrine: no increased thirst or abnormal weight change Allergic: no skin or latex allergy All other systems reviewed and normal Exam: General: Well-nourished well-developed individual, no acute distress HEENT: Throat: Normal, tonsils normal, no erythema or exudate EARS: Left ear there is a small amount of debris in the left ear canal however the tympanic membrane appears to be normal. Right ear: There is a large amount of debris in the right external ear canal with discharge. The ear canal is swollen with difficulty visualization of the tympanic membrane. There is increased warmth erythema and tenderness of the mastoid process as well as the posterior auricular area. There is submandibular lymphadenopathy on the right. Neck: Supple, no meningeal signs, no lymphadenopathy Eyes::Pupils equal reactive and round, extraocular motion intact Chest: Nontender to palpation Cardiac: S1-S2 normal, regular rate and rhythm, no murmurs rubs or gallops Respiratory: Lungs clear to auscultation bilateral Abdomen: Soft, nondistended, normal bowel sounds, nontender to palpation diffusely Extremities: Warm, dry, no cyanosis, clubbing, or edema Skin: No rashes Neuro: Alert and oriented x3, CN II - XII intact, nonfocal exam with normal strength, normal sensation, normal reflexes, normal gait, Psych: Normal mood and affect 09/11/17 00:08 Past History - Past Medical History Allergies/Adverse Reactions: Allergies Allergy/AdvReac Type Severity Reaction Status Date / Time No Known Allergies Allergy Verified 08/28/17 10:23 Home Medications: Ambulatory Orders Lisinopril 10 mg PO DAILY tablet 12/06/16 Sotalol HCl [Sotalol] 80 mg PO BID tablet 12/06/16 Alprazolam [Xanax] 1 mg PO BID 04/30/17 Amoxicillin/Potassium Clav [Augmentin 875-125 Tablet] 1 each PO BID 7 Days #14 tablet 08/28/17 metFORMIN HCL [Metformin HCl] 500 mg PO BID 08/28/17 Acetaminophen [Tylenol .Regular Strength -] 650 mg PO Q6H PRN tablet 09/02/17 Lactobacillus Acidophilus [Bacid -] 1 tab PO DAILY #30 tab 09/02/17 Warfarin Na [Coumadin -] 7.5 mg PO DAILY@1800 tablet 09/02/17 Ciprofloxacin HCl/Dexameth [Ciprodex Otic Suspension] 4 drop AD BID #1 bottle Acetaminophen [Tylenol .Regular Strength -] 650 mg PO Q6H PRN tablet 09/12/17 Amoxicillin/Potassium Clav [Augmentin 875-125 Tablet] 1 each PO BID #14 tablet 09/12/17 Warfarin Na [Coumadin -] 7.5 mg PO DAILY@1800 tablet 09/12/17 Cardiac Disorders: Yes (AFIB) COPD: No Diabetes: Yes HTN: Yes Psychiatric Problems: Yes (ANXIETY) - Surgical History Cholecystectomy: Yes - Suicide/Smoking/Psychosocial Hx Smoking History: Never smoked Have you smoked in the past 12 months: No Number of Cigarettes Smoked Daily: 0 Information on smoking cessation initiated: No Hx Alcohol Use: No Drug/Substance Use Hx: No Substance Use Type: None Hx Substance Use Treatment: No *Physical Exam - Vital Signs Last Vital Signs Temp Pulse Resp BP Pulse Ox 99.3 F 136 H 14 183/114 99 09/10/17 23:24 09/10/17 23:24 09/10/17 23:24 09/10/17 23:24 09/10/17 23:24 ED Treatment Course - LABORATORY CBC & Chemistry Diagram: 09/12/17 08:00 09/12/17 08:00 *DC/Admit/Observation/Transfer Diagnosis at time of Disposition: Malignant otitis externa - Discharge Dispostion Condition at time of disposition: Stable - Prescriptions - Referrals - Patient Instructions - Post Discharge Activity
[2017-09-11] MEDS ORDERED: CIPROFLOXACIN 400 MG/D5W 400 MG/200 ML IVPB IVPB ONE (00:03)
[2017-09-11] MEDS ORDERED: HYDROmorphone HCL CARPU-JECT 1 MG/1 ML DISP.SYRIN IVPUSH ONE (00:08)
[2017-09-11] MEDS ORDERED: HYDROmorphone HCL CARPU-JECT 2 MG/1 ML DISP.SYRIN ONE (00:13)
[2017-09-11 00:46] LABS: BASO % 0.9 % (0-2.0); EOS % 0.8 % (0-4.5); HEMATOCRIT 35.9 % (32.4-45.2); HEMOGLOBIN 11.5 GM/dL (10.7-15.3); LYMPH % 24.3 % (8-40); MCH 25.5 pg (25.7-33.7); MEAN CELL VOLUME 79.8 fl (80-96); MEAN PLT VOLUME 11.3 fl (7.5-11.1); MONO % 5.2 % (3.8-10.2); NEUT % 68.8 % (42.8-82.8); PLATELET COUNT 295 K/MM3 (134-434); RDW 14.3 % (11.6-15.6); WHITE BLOOD COUNT 8.1 K/mm3 (4.0-10.0)
[2017-09-11] MEDS ORDERED: KETOROLAC TROMETHAMINE 30 MG/1 ML VIAL ONE (01:30)
[2017-09-11] MEDS ORDERED: INSULIN REGULAR HUMAN 100 UNITS/ML *VIAL ONE (03:02)
[2017-09-11 08:56] LABS: CALCIUM 9.2 mg/dL (8.5-10.1)
[2017-09-11 08:57] LABS: ALBUMIN 3.3 g/dl (3.4-5.0); ALK PHOS 90 U/L (45-117); ANION GAP 11 (8-16); BILIRUBIN,TOTAL 0.2 mg/dL (0.2-1.0); BLOOD UREA NITROGEN 12 mg/dL (7-18); CHLORIDE 100 mmol/L (98-107); CO2 25 mmol/L (21-32); CREATININE 0.7 mg/dL (0.55-1.02); SGPT/ALT 21 U/L (12-78); SODIUM 136 mmol/L (136-145); TOT PROT 8.1 g/dl (6.4-8.2)
[2017-09-11] MEDS ORDERED: KETOROLAC TROMETHAMINE 30 MG/1 ML VIAL IVPB PRN (09:06)
--- NOTE | 2017-09-11 09:42 | HP ---
CHIEF COMPLAINT: bilateral ear pain PCP: Dr Hagen cardiology: Dr Sotelo HISTORY OF PRESENT ILLNESS: Patient is a 42 -year-old female with a past medical history of depression, anxiety, A. fib (Coumadin), s/p ablation x 2, and DM. Patient was Reports ongoing bilateral ear pain for the past 2 weeks. She was recently admitted to this hospital and discharged on 09/02/2017 with Augmentin and Cortisporin for bilateral otitis externa and otitis media. She Does report compliance with prescribed medications. Patient does report that the bilateral ear pain worsened in the past 24 hours however the pain resolved after drainage was noted from the bilateral ears in the emergency department. Patient denies any tactile fevers. ER course was notable for: (1) wbc 8.1 (2)ct of chest No ICH mastoid air cells are well aerated (3)EKG, normal sinus rhythm,QTC 519 Recent Travel: none PAST MEDICAL HISTORY: SEE hpi PAST SURGICAL HISTORY: see hpi Social History: resides at home employed Smoking:None Alcohol:None Drugs: Occasional marijuana and cocaine use Family History: non contributory to this admission Allergies No Known Allergies Allergy (Verified 08/28/17 10:23) HOME MEDICATIONS: Home Medications Medication Instructions Recorded Warfarin Sodium 5 mg PO HS tablet 07/30/16 Lisinopril 10 mg PO DAILY tablet 12/06/16 Sotalol HCl [Sotalol] 80 mg PO BID tablet 12/06/16 Alprazolam [Xanax] 1 mg PO BID 04/30/17 Amoxicillin/Potassium Clav 1 each PO BID 7 Days #14 tablet 08/28/17 [Augmentin 875-125 Tablet] Neomycin/Polymyxn/Hc [Cortisporin 4 drop QID #120 drops 08/28/17 Otic Solution -] metFORMIN HCL [Metformin HCl] 500 mg PO BID 08/28/17 Acetaminophen [Tylenol .Regular 650 mg PO Q6H PRN tablet 09/02/17 Strength -] Lactobacillus Acidophilus [Bacid -] 1 tab PO DAILY #30 tab 09/02/17 Warfarin Na [Coumadin -] 7.5 mg PO DAILY@1800 tablet 09/02/17 REVIEW OF SYSTEMS CONSTITUTIONAL: Absent: fever, chills, diaphoresis, generalized weakness, malaise, loss of appetite, weight change HEENT: Absent: rhinorrhea, nasal congestion, throat pain, throat swelling, difficulty swallowing, mouth swelling, ear pain, eye pain, visual changes CARDIOVASCULAR: Absent: chest pain, syncope, palpitations, irregular heart rate, lightheadedness , peripheral edema RESPIRATORY: Absent: cough, shortness of breath, dyspnea with exertion, orthopnea, wheezing, stridor, hemoptysis GASTROINTESTINAL: Absent: abdominal pain, abdominal distension, nausea, vomiting, diarrhea, constipation, melena, hematochezia GENITOURINARY: Absent: dysuria, frequency, urgency, hesitancy, hematuria, flank pain, genital pain MUSCULOSKELETAL: Absent: myalgia, arthralgia, joint swelling, back pain, neck pain SKIN: Absent: rash, itching, pallor HEMATOLOGIC/IMMUNOLOGIC: Absent: easy bleeding, easy bruising, lymphadenopathy, frequent infections ENDOCRINE: Absent: unexplained weight gain, unexplained weight loss, heat intolerance, cold intolerance NEUROLOGIC: Absent: headache, focal weakness or paresthesias, dizziness, unsteady gait, seizure, mental status changes, bladder or bowel incontinence PSYCHIATRIC: Absent: anxiety, depression, suicidal or homicidal ideation, hallucinations. PHYSICAL EXAMINATION Vital Signs - 24 hr 09/10/17 23:24 Temperature 99.3 F Pulse Rate 136 H Respiratory 14 Rate Blood Pressure 183/114 O2 Sat by Pulse 99 Oximetry (%) GENERAL: Awake, alert, and fully oriented, in no acute distress. HEAD: Normal with no signs of trauma. EYES: Pupils equal, round and reactive to light, extraocular movements intact, sclera anicteric, conjunctiva clear. No lid lag. EARS, NOSE, THROAT: Right tympanic membrane perforated draining purulent drainage, erythema noted to the ear canal, pinna tenderness noted, no lymphadenopathy noted no erythema or pain to the mastoid process, Left tympanic membrane, perforated TM, Draining purulent drainage, erythema noted to the ear canal, no erythema noted to the mastoid process no point tenderness noted and no lymphadenopathy noted, nares patent, oropharynx clear without exudates. Moist mucous membranes. NECK: Normal range of motion, supple without lymphadenopathy, JVD, or masses. LUNGS: Breath sounds equal, clear to auscultation bilaterally. No wheezes, and no crackles. No accessory muscle use. HEART: Regular rate and rhythm, normal S1 and S2 without murmur, rub or gallop. ABDOMEN: Soft, nontender, not distended, normoactive bowel sounds, no guarding, no rebound, no masses. No hepatomegaly or splenomegaly. MUSCULOSKELETAL: Normal range of motion at all joints. No bony deformities or tenderness. No CVA tenderness. UPPER EXTREMITIES: 2+ pulses, warm, well-perfused. No cyanosis. No clubbing. No peripheral edema. LOWER EXTREMITIES: 2+ pulses, warm, well-perfused. No calf tenderness. No peripheral edema. NEUROLOGICAL: Cranial nerves II-XII intact. Normal speech. Normal gait. PSYCHIATRIC: Cooperative. Good eye contact. Appropriate mood and affect. SKIN: Warm, dry, normal turgor, no rashes or lesions noted, normal capillary refill. Laboratory Results - last 24 hr 09/11/17 09/11/17 00:12 06:42 WBC 8.1 RBC 4.50 Hgb 11.5 Hct 35.9 MCV 79.8 L MCH 25.5 L MCHC 32.0 RDW 14.3 Plt Count 295 D MPV 11.3 H Absolute Neuts (auto) 5.5 Neutrophils % 68.8 D Lymphocytes % 24.3 D Monocytes % 5.2 Eosinophils % 0.8 Basophils % 0.9 Nucleated RBC % 0 POC Glucometer 132 ASSESSMENT/PLAN: 1)Otitis media/otitis externa - Case with physical exam reviewed with ENT Dr Rudd and advisedCiprodex drops and agrees with Unasyn. Advised outpatient follow-up with ENT within 24 hours - Levaquin discontinued QTc noted to be 509 on EKG start Unasyn and ciprofloxacin ear drops - No leukocytosis patient afebrile monitor wbc and fever trend 2) cardiovascular A. fib s/p ablation - continue sotalol - continue coumadin hypertension - continue lisinopril - strict blood pressure monitoring every 4 hours 3) DM - Continue metformin - pending hemoglobin A1c fingersticks before meals and at bedtime with regular insulin coverage 4) neuro migraine headache - reports a squeezing sensation to the entire head, she reports a history of migraines and pain is similar to headaches that she has experienced a past head CT reviewed - Toradol and Reglan and Benadryl and magnesium ordered close monitoring f/e/n - low Sodium diabetic diet - replete Electrolytes when necessary ppx - Coumadin - oob dispo: pt requires obsv admission Visit type - Emergency Visit Emergency Visit: Yes ED Registration Date: 09/11/17 Care time: The patient presented to the Emergency Department on the above date and was hospitalized for further evaluation of their emergent condition. - New Patient This patient is new to me today: Yes Date on this admission: 09/11/17 - Critical Care Critical Care patient: No Hospitalist Screening - Colonoscopy Questionnaire Colonoscopy Questionnaire: Colonoscopy Questionnaire - Patient: 50 - 75 years old and never had a screening colonoscopy: No History of colon or rectal polyps, or CA: No History of IBD, Crohn's disease or UC: No History of abdominal radiation therapy as a child: No - Relative: 1 with colon or rectal CA, or polyps at age 60 or younger: No Colon or rectal CA diagnosed at age 45 or younger: No Multiple relatives with colon or rectal CA: No - Outcome: Screening Result: Negative Screen
[2017-09-11 09:54] LABS: POTASSIUM 4.1 mmol/L (3.5-5.1); SGOT/AST 15 U/L (15-37)
[2017-09-11 09:55] LABS: GLUCOSE,RANDOM 311 mg/dL (74-106)
[2017-09-11] MEDS ORDERED: ACETAMINOPHEN 325 MG TABLET (FP) ONE (10:01)
[2017-09-11] MEDS: ACETAMINOPHEN 325 MG TABLET (FP) PO PRN ×2 (10:07→17:49)
[2017-09-11] MEDS ORDERED: ALPRAZolam 1 MG TABLET PO PRN (10:47)
[2017-09-11] MEDS ORDERED: LISINOPRIL 10 MG TABLET (FP) PO SCH (11:00)
[2017-09-11] MEDS ORDERED: AMPICILLIN NA/SULBACTAM NA 1.5 GM in SODIUM CHLORIDE 100 ML IVPB SCH (11:15)
[2017-09-11] MEDS ORDERED: MAGNESIUM 1GM/D5W 100ML - 100 ML IVPB IVPB ONE (11:15)
[2017-09-11] MEDS ORDERED: METOCLOPRAMIDE HCL INJECTION 10 MG/2 ML VIAL IVPUSH ONE (11:16)
[2017-09-11 11:25] VITALS: BMI 43.2
[2017-09-11] MEDS ORDERED: PT OWN MED DRAWER 7, Y5N ONE ×3 (11:27→21:07)
[2017-09-11] MEDS: SOTALOL HCL 80 MG TABLET (FP) PO SCH ×2 (11:56→21:29)
[2017-09-11] MEDS: CIPROFLOXACIN HCL 0.3% OPHTH 2.5ML BOTTLE NR SCH ×2 (13:10→21:29)
[2017-09-11] MEDS: AMPICILLIN NA/SULBACTAM NA 1.5 GM/100 ML BAG IVPB SCH ×2 (15:04→21:28)
--- NOTE | 2017-09-11 15:38 | EKG ---
Test Reason : Blood Pressure : / mmHG Vent. Rate : 084 BPM Atrial Rate : 084 BPM P-R Int : 142 ms QRS Dur : 094 ms QT Int : 440 ms P-R-T Axes : 040 040 054 degrees QTc Int : 519 ms NORMAL SINUS RHYTHM ANTERIOR INFARCT (CITED ON OR BEFORE 31-AUG-2017) PROLONGED QT ABNORMAL ECG WHEN COMPARED WITH ECG OF 11-SEP-2017 02:30, NO SIGNIFICANT CHANGE WAS FOUND Confirmed by NIDA VERDUZCO, NU ([id number]) on 09/11/2017 3:38:15 PM Referred By: TITO GALINDO Confirmed By:NU ALVA MD
[2017-09-11] MEDS: metFORMIN HCL 500 MG TABLET (FP) PO SCH (16:40)
[2017-09-11 17:29] LABS: URINE APPEARANCE Clear; URINE BILIRUBIN Negative (NEGATIVE); URINE COLOR YELLOW; URINE GLUCOSE (UA) 2+ (NEGATIVE); URINE KETONE 2+ (NEGATIVE); URINE LEUK ESTERASE 1+ (NEGATIVE); URINE NITRITE Negative (NEGATIVE); URINE PROTEIN 2+ (NEGATIVE)
[2017-09-11] MEDS ORDERED: WARFARIN NA 5 MG TABLET (UD) PO SCH (18:00)
[2017-09-11 23:12] LABS: EPI CELLS FEW /HPF; URINE BACTERIA FEW /hpf (NEGATIVE); URINE RBC 0-2 /hpf (0-3)
[2017-09-12] MEDS: AMPICILLIN NA/SULBACTAM NA 1.5 GM/100 ML BAG IVPB SCH (02:06)
[2017-09-12] MEDS: metFORMIN HCL 500 MG TABLET (FP) PO SCH (06:31)
[2017-09-12 06:42] VITALS: BP 156/80; PULSE 75; TEMP 98.3
[2017-09-12 08:39] LABS: EOS % 4.1 % (0-4.5); INR 1.06 (0.82-1.09); MCH 26.8 pg (25.7-33.7); MCHC 33.6 g/dl (32.0-36.0); MEAN CELL VOLUME 79.7 fl (80-96); PROTHROMBIN TIME (PATIENT) 11.8 SEC (10.2-13.0)
[2017-09-12 08:41] LABS: ANION GAP 10 (8-16); BLOOD UREA NITROGEN 10 mg/dl (7-18); CALCIUM 8.8 mg/dl (8.4-10.2); CHLORIDE 100 mmol/L (98-107); CO2 24 mmol/L (22-28); GLUCOSE,RANDOM 211 mg/dl (74-106); MAGNESIUM 1.4 mg/dL (1.8-2.4); PHOSPHOROUS 3.5 mg/dl (2.5-4.6); POTASSIUM 3.5 mmol/L (3.5-5.1); SODIUM 134 mmol/L (136-145)
[2017-09-12 08:43] LABS: BASO % 1.2 % (0-2.0); HEMATOCRIT 33.7 % (32.4-45.2); HEMOGLOBIN 11.3 GM/dl (10.7-15.3); MEAN PLT VOLUME 10.1 fl (7.5-11.1); MONO % 7.7 % (3.8-10.2); PLATELET COUNT 269 K/MM3 (134-434); RBC 4.22 M/mm3 (3.60-5.2); RDW 13.8 % (11.6-15.6); WHITE BLOOD COUNT 4.7 K/mm3 (4.0-10.8)
[2017-09-12 08:52] LABS: CREATININE < 0.8 mg/dl (0.6-1.3)
[2017-09-12] MEDS ORDERED: MAGNESIUM SULFATE IN WATER 2 GM/50 ML IVPB IVPB ONE (09:37)
[2017-09-12] MEDS ORDERED: POTASSIUM CHLORIDE TABS 20 MEQ TABLET.ER (FP) PO ONE (09:49)
[2017-09-12] MEDS ORDERED: LACTOBACILLUS ACIDOPHILUS 1 TABLET PO SCH (10:00)
[2017-09-12] MEDS ORDERED: PT OWN MED DRAWER 7, Y5N ONE ×2 (10:42→11:59)
--- NOTE | 2017-09-12 12:35 | DS ---
Physical Exam: SUBJECTIVE: Patient seen and examined, ambulatory throughout nursing station, reports feeling much improved, denies any chest pain or shortness of breath. OBJECTIVE: Patient is a 42 -year-old female with a past medical history of depression, anxiety, A. fib (Coumadin), s/p ablation x 2, and DM. Patient was Reports ongoing bilateral ear pain for the past 2 weeks. She was recently admitted to this hospital and discharged on 09/02/2017 with Augmentin and Cortisporin for bilateral otitis externa and otitis media. She Does report compliance with prescribed medications. Patient does report that the bilateral ear pain worsened in the past 24 hours however the pain resolved after drainage was noted from the bilateral ears in the emergency department. Patient denies any tactile fevers. ER course was notable for: (1) wbc 8.1 (2)ct of chest No ICH mastoid air cells are well aerated (3)EKG, normal sinus rhythm,QTC 519 Vital Signs Period Temp Pulse Resp BP Sys/Cruz Pulse Ox Last 24 Hr 98.3 F-98.7 F 74-80 19-20 154-156/71-82 97-100 PHYSICAL EXAM GENERAL: The patient is awake, alert, and fully oriented, in no acute distress. HEAD: Normal with no signs of trauma. EYES: PERRL, extraocular movements intact, sclera anicteric, conjunctiva clear. ENT: Ears normal, nares patent, oropharynx clear without exudates, moist mucous membranes. NECK: Trachea midline, full range of motion, supple. LUNGS: Breath sounds equal, clear to auscultation bilaterally, no wheezes, no crackles, no accessory muscle use. HEART: Regular rate and rhythm, S1, S2 without murmur, rub or gallop. ABDOMEN: Soft, nontender, nondistended, normoactive bowel sounds, no guarding, no rebound, no hepatosplenomegaly, no masses. EXTREMITIES: 2+ pulses, warm, well-perfused, no edema. NEUROLOGICAL: Cranial nerves II through XII grossly intact. Normal speech, gait not observed. PSYCH: Normal mood, normal affect. SKIN: Warm, dry, normal turgor, no rashes or lesions noted. LABS Laboratory Results - last 24 hr 09/11/17 09/12/17 09/12/17 17:20 06:26 08:00 WBC 4.7 RBC 4.22 Hgb 11.3 Hct 33.7 MCV 79.7 L MCH 26.8 MCHC 33.6 RDW 13.8 Plt Count 269 MPV 10.1 Absolute Neuts (auto) 2.3 Neutrophils % 50.0 Lymphocytes % 37.0 Monocytes % 7.7 Eosinophils % 4.1 Basophils % 1.2 PT with INR INR Sodium Potassium Chloride Carbon Dioxide Anion Gap BUN Creatinine POC Glucometer 200 Random Glucose Calcium Phosphorus Magnesium Urine Color Yellow Urine Appearance Clear Urine pH 6.0 Ur Specific [place] 1.025 Urine Protein 2+ H Urine Glucose (UA) 2+ H Urine Ketones 2+ H Urine Blood Trace-intact H Urine Nitrite Negative Urine Bilirubin Negative Urine Urobilinogen 1.0 Ur Leukocyte Esterase 1+ H Urine RBC 0-2 Urine WBC 10-15 Ur Epithelial Cells Few Urine Bacteria Few 09/12/17 09/12/17 08:00 08:00 WBC RBC Hgb Hct MCV MCH MCHC RDW Plt Count MPV Absolute Neuts (auto) Neutrophils % Lymphocytes % Monocytes % Eosinophils % Basophils % PT with INR 11.8 INR 1.06 Sodium 134 L Potassium 3.5 D Chloride 100 Carbon Dioxide 24 Anion Gap 10 BUN 10 D Creatinine < 0.8 POC Glucometer Random Glucose 211 H Calcium 8.8 Phosphorus 3.5 Magnesium 1.4 L Urine Color Urine Appearance Urine pH Ur Specific [place] Urine Protein Urine Glucose (UA) Urine Ketones Urine Blood Urine Nitrite Urine Bilirubin Urine Urobilinogen Ur Leukocyte Esterase Urine RBC Urine WBC Ur Epithelial Cells Urine Bacteria Microbiology 09/11/17 00:12 Wound Wound Culture - Preliminary Yeast Like Organism 09/11/17 00:30 Blood - Peripheral Venous Blood Culture - Preliminary NO GROWTH OBTAINED AFTER 24 HOURS, INCUBATION TO CONTINUE FOR 4 DAYS. 09/11/17 00:12 Blood - Peripheral Venous Blood Culture - Preliminary NO GROWTH OBTAINED AFTER 24 HOURS, INCUBATION TO CONTINUE FOR 4 DAYS. 09/11/17 00:12 Ear - Right Medial LEIDY Preparation - Preliminary 09/11/17 00:12 Ear - Right Medial Fungal Culture - Preliminary HOSPITAL COURSE: 1)Otitis media/otitis externa - Case discussed and physical exam reviewed with ENT Dr Rudd and advised Ciprodex drops and agrees with Unasyn. Advised outpatient follow-up with ENT within 24 hour--ointment made with ENT for 09/13/2017 - Levaquin discontinued QTc noted to be 509 on EKG start Unasyn and ciprofloxacin ear drops - No leukocytosis patient afebrile monitor wbc and fever trend 2) cardiovascular A. fib s/p ablation - continue sotalol - continue coumadin. INR noted to be subtherapeutic increase Coumadin to 7.5 mg hypertension - continue lisinopril - strict blood pressure monitoring every 4 hours 3) DM - Continue metformin - fingersticks before meals and at bedtime with regular insulin coverage 4) neuro migraine headache - reports a squeezing sensation to the entire head, she reports a history of migraines and pain is similar to headaches that she has experienced a past head CT reviewed - Toradol and Reglan and Benadryl and magnesium ordered with relief of headache Date of Admission:09/11/17 Date of Discharge: 09/12/17 Minutes to complete discharge: 45 Discharge Summary Reason For Visit: R/O MALIGNANT OTITIS EXTERNA Condition: Improved - Instructions Diet, Activity, Other Instructions: - Have a scheduled appointment with ENT Dr Arroyo scheduled for August @ 12pm - Continue antibiotics as prescribed. - continue Ciprodex eardrops as prescribed - Take Coumadin 7.5 mg today and tomorrow please repeat the INR on Friday, 09/15 - continue all medications as prescribed - if Any new or persistent symptoms of please return to emergency department Referrals: Aj Hagen MD [Primary Care Provider] - Gerson Echols MD [Staff Physician] - Disposition: HOME - Home Medications Comprehensive Discharge Medication List: Ambulatory Orders Warfarin Sodium 5 mg PO HS tablet 07/30/16 Lisinopril 10 mg PO DAILY tablet 12/06/16 Sotalol HCl [Sotalol] 80 mg PO BID tablet 12/06/16 Alprazolam [Xanax] 1 mg PO BID 04/30/17 Amoxicillin/Potassium Clav [Augmentin 875-125 Tablet] 1 each PO BID 7 Days #14 tablet 08/28/17 Neomycin/Polymyxn/Hc [Cortisporin Otic Solution -] 4 drop QID #120 drops metFORMIN HCL [Metformin HCl] 500 mg PO BID 08/28/17 Acetaminophen [Tylenol .Regular Strength -] 650 mg PO Q6H PRN tablet 09/02/17 Lactobacillus Acidophilus [Bacid -] 1 tab PO DAILY #30 tab 09/02/17 Warfarin Na [Coumadin -] 7.5 mg PO DAILY@1800 tablet 09/02/17 Ciprofloxacin HCl/Dexameth [Ciprodex Otic Suspension] 4 drop AD BID #1 bottle This patient is new to me today: No Emergency Visit: Yes ED Registration Date: 09/11/17 Care time: The patient presented to the Emergency Department on the above date and was hospitalized for further evaluation of their emergent condition. Critical Care patient: No - Discharge Referral Referred to [facility] Yes Physician Referral: Aj Hagen MD (Int Med)
[2017-09-12] MEDS ORDERED: WARFARIN NA 7.5 MG TABLET (FP) PO SCH (18:00)
--- NOTE | 2017-09-13 17:49 | EKG ---
Test Reason : Blood Pressure : / mmHG Vent. Rate : 085 BPM Atrial Rate : 085 BPM P-R Int : 142 ms QRS Dur : 084 ms QT Int : 440 ms P-R-T Axes : 042 033 053 degrees QTc Int : 523 ms NORMAL SINUS RHYTHM CANNOT RULE OUT ANTERIOR INFARCT (CITED ON OR BEFORE 31-AUG-2017) PROLONGED QT ABNORMAL ECG WHEN COMPARED WITH ECG OF 31-AUG-2017 11:48, NO SIGNIFICANT CHANGE WAS FOUND Confirmed by STEVEN GRAYSON MD ([id number]) on 09/13/2017 5:49:11 PM Referred By: MD JOSEPH Confirmed By:STEVEN GRAYSON MD
== END 2017-09-12 14:10 | disposition home or self-care (01) ==
LOC: FER 23:21 → UNDOADMOB 09-11 03:00 → FM/S 09-11 03:00 → INTOOBSV 09-11 03:00 → FM/S 09-11 10:09
PROVIDERS: ADMIT Internal Medicine; ATTEND Nurse Practitioner Family
PROC: 3E03329 Introduction of Other Anti-infective into Peripheral Vein, Percutaneous Approach (ICD-10-PCS; principal; 2017-09-11)
PROC: 3E033NZ Introduction of Analgesics, Hypnotics, Sedatives into Peripheral Vein, Percutaneous Approach (ICD-10-PCS; 2017-09-11)
DX: H60.21 Malignant otitis externa, right ear (principal); H66.91 Otitis media, unspecified, right ear; I48.91 Unspecified atrial fibrillation; I10 Essential (primary) hypertension; E11.9 Type 2 diabetes mellitus without complications; F41.9 Anxiety disorder, unspecified; Z79.01 Long term (current) use of anticoagulants; Z79.84 Long term (current) use of oral hypoglycemic drugs
CPT/HCPCS: 36415; 70450-TC; 80048; 80053; 81003; 81015; 82962; 83735; 84100; 85025; 85610; 86140; 87040; 87070; 87086; 87102; 87205; 87210; 93005; 99285-25; G0378